=== PATIENT | female | born 1940 | race Caucasian/White ===

== ENCOUNTER 2017-04-02 17:29 | Inpatient (IN) | payer MEDICARE ==
[~2017-04-02] VITALS: Ht 170.2 cm; Wt 77.0 kg
[~2017-04-02 17:29] MED LIST: ADVA250A INH; ALPR-138 PO; AMLO10 PO; ATOR10TA PO; BYST10TA2 PO; CALC-179 PO; CARB200 PO; DOXA1 PO; FERR324T4 PO; LEVO50TA4 PO; OMEP20TA PO; PARO1TAB72 PO; VITA100018 OR
[2017-04-02 17:37] VITALS: BP 159/76; PULSE 76; RESP 17; TEMP 97.4; O2SAT 94
--- NOTE | 2017-04-02 19:24 | RADRPT ---
EXAM DATE/TIME: 04/02/2017 18:22 [facility] COMPARISON: No previous studies available for comparison. INDICATIONS : Right hip pain after fall tonight. MEDICAL HISTORY : None. SURGICAL HISTORY : None. ENCOUNTER: Initial ACUITY: 1 day PAIN SCORE: 10/10 LOCATION: Right hip. FINDINGS: There is a mildly displaced fracture through the subcapital portion of the right femoral neck. A disl ocation. Mild osteoarthritis of the hips. CONCLUSION: 1. Mildly displaced fracture right femoral neck. Hilton Villagran MD on April 02, 2017 at 19:21 Board Certified Radiologist. This report was verified electronically.
[2017-04-02] MEDS ORDERED: SODIUM CHLOR 0.9% 1000 ML INJ 1,000 ML IV ONE ×2 (20:10→20:30)
[2017-04-02 20:14] VITALS: RESP 18; O2SAT 95
[2017-04-02 20:15] VITALS: BP 180/74; PULSE 84; RESP 18; O2SAT 95
[2017-04-02] MEDS ORDERED: SODIUM CHLORIDE 0.9% FLUSH 10 ML FLUSH IVF PRN (20:15)
--- NOTE | 2017-04-02 20:19 | PD ---
HPI Chief Complaint: Fall Time Seen by Provider: 20:12 Travel History International Travel<30 days: No Contact w/Intl Traveler<30days: No Traveled to known affect area: No History of Present Illness HPI Patient 76-year-old female presenting to emergency evaluation of right hip pain. Patient states that she was attempting to use use the bathroom when she fell over, she subsequently landed on her right hip. Patient states she urinated on herself at that time. She does not remember feeling any chest pain or dizziness prior to the fall, she does not know if she lost consciousness. She reports her pain as an 8 out of 10 and describes it as sore. She denies any chest pain, headache, abdominal pain, shortness of breath, numbness in her extremities. PFSH Past Medical History Arthritis: No Asthma: No Autoimmune Disease: No Blood Disorders: No Anxiety: No Depression: No Heart Rhythm Problems: No Cancer: No High Cholesterol: Yes Chest Pain: No Congestive Heart Failure: No COPD: No Cerebrovascular Accident: Yes Diabetes: No Diminished Hearing: Yes GERD: No Genitourinary: Yes Headaches: Yes Hiatal Hernia: No Hypertension: Yes Immune Disorder: No Kidney Stones: No Musculoskeletal: No Neurologic: Yes (CVA) Psychiatric: No Reproductive: No Respiratory: No Migraines: Yes Myocardial Infarction: No Seizures: No Thyroid Disease: Yes PNEUMOCCOCAL Vaccine (Year): 2 Menopausal: Yes : 0 Para: 0 Miscarriage: 0 : 0 Past Surgical History Appendectomy: Yes Hysterectomy: Yes (complete) Tonsillectomy: Yes Social History Alcohol Use: No Tobacco Use: Yes (1 PPD) Substance Use: No Allergies-Medications (Allergen,Severity, Reaction): Coded Allergies: LAUREN Inhibitors (Verified Allergy, Severe, Edema, 04/02/17) PT GETS ANGIOEDEMA FROM LAUREN INHIBITORS Nonsteroidal Anti-Inflammatory Agts (Verified Allergy, Severe, Swelling, ) Reported Meds & Prescriptions Reported Meds & Active Scripts Active Paroxetine (Paroxetine HCl) 20 Mg Tab 1 Tab PO DAILY Ferrous Sulfate 324 Mg Tab 325 Mg PO BID Omeprazole 20 mg (Omeprazole) 20 Mg Tab 1 Tab PO DAILY Tegretol 200 Mg Tab (Carbamazepine) 200 Mg Tab 200 Mg PO Q12 Bystolic 10 Mg Tab (Nebivolol) 10 Mg Tab 10 Mg PO HS Vitamin D (Cholecalciferol) 1,000 Unit Tab 1,000 Unit OR DAILY Norvasc (Amlodipine Besylate) 10 Mg Tab 10 Mg PO DAILY Advair Diskus 250/50 (Salmeterol Xinafoate/Fluticasone) 250 Mcg/50 Mcg Inhp 1 Puff INH BID 30 Days Reported Atorvastatin 10 mg (Atorvastatin Calcium) 10 Mg Tab 1 Tab PO DAILY Levothyroxine 50 mcg (Levothyroxine Sodium) 50 Mcg Tab 0.5 Tab PO DAILY 1/2 tablet daily Doxazosin Mesylate 4 mg (Doxazosin Mesylate) 4 Mg Tab 1 Mg PO HS Calcium (Calcium & Phosphorus W/ Vitami) Tab 500 Mg PO DAILY Xanax (Alprazolam) 0.25 Mg Tab 0.25 Mg PO TID PRN Review of Systems Except as stated in HPI: all other systems reviewed are Neg Eyes: No: Visual changes HENT: No: Headaches, Lightheadedness, Neck Pain Cardiovascular: No: Chest Pain or Discomfort Respiratory: No: Shortness of Breath Gastrointestinal: No: Nausea, Vomiting, Abdominal Pain Musculoskeletal: Positive: Pain Neurologic: Positive: Syncope, No: Focal Abnormalities, Headache Physical Exam Narrative GENERAL: Well developed, well-nourished, alert elderly female. Resting comfortably in no acute distress. SKIN: Focused skin assessment warm/dry. HEAD: Atraumatic. Normocephalic. EYES: Pupils equal and round. No scleral icterus. No injection or drainage. ENT: No nasal bleeding or discharge. Mucous membranes pink and moist. NECK: Trachea midline. No JVD. CARDIOVASCULAR: Regular rate and rhythm. No murmur appreciated. RESPIRATORY: No accessory muscle use. Clear to auscultation. Breath sounds equal bilaterally. GASTROINTESTINAL: Abdomen soft, non-tender, nondistended. Hepatic and splenic margins not palpable. MUSCULOSKELETAL: No obvious deformities. No clubbing. No cyanosis. No edema. NEUROLOGICAL: Awake and alert. No obvious cranial nerve deficits. Motor grossly within normal limits. Normal speech. Positive pedal pulses. Brisk less than 3 second capillary refill. PSYCHIATRIC: Appropriate mood and affect; insight and judgment normal. Data Data Last Documented VS Vital Signs Date Time Temp Pulse Resp B/P Pulse Ox O2 Delivery O2 Flow Rate FiO2 04/02/17 20:15 84 18 180/74 95 Room Air 04/02/17 17:37 97.4 Orders Hip, Uni(Ap&Lat) W Ap Pelvis (04/02/17 ) Electrocardiogram (04/02/17 20:10) Complete Blood Count With Diff (04/02/17 20:10) Comprehensive Metabolic Panel (04/02/17 20:10) Magnesium (Mg) (04/02/17 20:10) Ckmb (Isoenzyme) Profile (04/02/17 20:10) Troponin I (04/02/17 20:10) Act Partial Throm Time (Ptt) (04/02/17 20:10) Prothrombin Time / Inr (Pt) (04/02/17 20:10) Urinalysis - C+S If Indicated (04/02/17 20:10) Chest, Single Ap (04/02/17 20:10) Ct Brain W/O Iv Contrast(Rout) (04/02/17 20:10) Blood Glucose (04/02/17 20:10) Ecg Monitoring (04/02/17 20:10) Iv Access Insert/Monitor (04/02/17 20:10) Oximetry (04/02/17 20:10) Sodium Chloride 0.9% Flush (Ns Flush) (04/02/17 20:15) Sodium Chlor 0.9% 1000 Ml Inj (Ns 1000 M (04/02/17 20:10) Morphine Inj (Morphine Inj) (04/02/17 20:30) Ondansetron Inj (Zofran Inj) (04/02/17 20:30) Sodium Chlor 0.9% 1000 Ml Inj (Ns 1000 M (04/02/17 20:30) Urinary Catheter Insert/Apply (04/02/17 20:29) Urine Culture (04/02/17 20:20) Consult Orthopedic (04/02/17 ) CKMB (04/02/17 20:20) CKMB% (04/02/17 20:20) (Hub Use Only)Inp Phy Cons/Ref (04/02/17 ) Ceftriaxone Inj (Rocephin Inj) (04/02/17 21:30) Admit Order (Ed Use Only) (04/02/17 21:47) Labs Laboratory Tests Test 04/02/17 20:20 White Blood Count 12.4 TH/MM3 Red Blood Count 4.20 MIL/MM3 Hemoglobin 13.4 GM/DL Hematocrit 40.0 % Mean Corpuscular Volume 95.4 FL Mean Corpuscular Hemoglobin 32.0 PG Mean Corpuscular Hemoglobin 33.5 % Concent Red Cell Distribution Width 14.0 % Platelet Count 243 TH/MM3 Mean Platelet Volume 9.0 FL Neutrophils (%) (Auto) 86.8 % Lymphocytes (%) (Auto) 7.1 % Monocytes (%) (Auto) 5.3 % Eosinophils (%) (Auto) 0.5 % Basophils (%) (Auto) 0.3 % Neutrophils # (Auto) 10.8 TH/MM3 Lymphocytes # (Auto) 0.9 TH/MM3 Monocytes # (Auto) 0.7 TH/MM3 Eosinophils # (Auto) 0.1 TH/MM3 Basophils # (Auto) 0.0 TH/MM3 CBC Comment DIFF FINAL Differential Comment Prothrombin Time 10.9 SEC Prothromb Time International 1.0 RATIO Ratio Activated Partial 26.4 SEC Thromboplast Time Urine Color YELLOW Urine Turbidity CLEAR Urine pH 6.5 Urine Specific [place] 1.013 Urine Protein NEG mg/dL Urine Glucose (UA) NEG mg/dL Urine Ketones NEG mg/dL Urine Occult Blood SMALL Urine Nitrite NEG Urine Bilirubin NEG Urine Urobilinogen LESS THAN 2.0 MG/DL Urine Leukocyte Esterase SMALL Urine RBC 20 /hpf Urine WBC 10 /hpf Microscopic Urinalysis Comment CULTURE INDICATED Sodium Level 143 MEQ/L Potassium Level 3.9 MEQ/L Chloride Level 109 MEQ/L Carbon Dioxide Level 27.0 MEQ/L Anion Gap 7 MEQ/L Blood Urea Nitrogen 19 MG/DL Creatinine 0.78 MG/DL Estimat Glomerular Filtration 72 ML/MIN Rate Random Glucose 110 MG/DL Calcium Level 8.9 MG/DL Magnesium Level 1.9 MG/DL Total Bilirubin 0.2 MG/DL Aspartate Amino Transf 22 U/L (AST/SGOT) Alanine Aminotransferase 34 U/L (ALT/SGPT) Alkaline Phosphatase 105 U/L Total Creatine Kinase 133 U/L Creatine Kinase MB 3.0 NG/ML Troponin I LESS THAN 0.02 NG/ML Total Protein 6.7 GM/DL Albumin 3.1 GM/DL MDM Medical Decision Making Medical Screen Exam Complete: Yes Emergency Medical Condition: Yes Interpretation(s) Laboratory Tests Test 04/02/17 20:20 White Blood Count 12.4 TH/MM3 Red Blood Count 4.20 MIL/MM3 Hemoglobin 13.4 GM/DL Hematocrit 40.0 % Mean Corpuscular Volume 95.4 FL Mean Corpuscular Hemoglobin 32.0 PG Mean Corpuscular Hemoglobin 33.5 % Concent Red Cell Distribution Width 14.0 % Platelet Count 243 TH/MM3 Mean Platelet Volume 9.0 FL Neutrophils (%) (Auto) 86.8 % Lymphocytes (%) (Auto) 7.1 % Monocytes (%) (Auto) 5.3 % Eosinophils (%) (Auto) 0.5 % Basophils (%) (Auto) 0.3 % Neutrophils # (Auto) 10.8 TH/MM3 Lymphocytes # (Auto) 0.9 TH/MM3 Monocytes # (Auto) 0.7 TH/MM3 Eosinophils # (Auto) 0.1 TH/MM3 Basophils # (Auto) 0.0 TH/MM3 CBC Comment DIFF FINAL Differential Comment Prothrombin Time 10.9 SEC Prothromb Time International 1.0 RATIO Ratio Activated Partial 26.4 SEC Thromboplast Time Urine Color YELLOW Urine Turbidity CLEAR Urine pH 6.5 Urine Specific [place] 1.013 Urine Protein NEG mg/dL Urine Glucose (UA) NEG mg/dL Urine Ketones NEG mg/dL Urine Occult Blood SMALL Urine Nitrite NEG Urine Bilirubin NEG Urine Urobilinogen LESS THAN 2.0 MG/DL Urine Leukocyte Esterase SMALL Urine RBC 20 /hpf Urine WBC 10 /hpf Microscopic Urinalysis Comment CULTURE INDICATED Sodium Level 143 MEQ/L Potassium Level 3.9 MEQ/L Chloride Level 109 MEQ/L Carbon Dioxide Level 27.0 MEQ/L Anion Gap 7 MEQ/L Blood Urea Nitrogen 19 MG/DL Creatinine 0.78 MG/DL Estimat Glomerular Filtration 72 ML/MIN Rate Random Glucose 110 MG/DL Calcium Level 8.9 MG/DL Magnesium Level 1.9 MG/DL Total Bilirubin 0.2 MG/DL Aspartate Amino Transf 22 U/L (AST/SGOT) Alanine Aminotransferase 34 U/L (ALT/SGPT) Alkaline Phosphatase 105 U/L Total Creatine Kinase 133 U/L Creatine Kinase MB 3.0 NG/ML Troponin I LESS THAN 0.02 NG/ML Total Protein 6.7 GM/DL Albumin 3.1 GM/DL Vital Signs Date Time Temp Pulse Resp B/P Pulse Ox O2 Delivery O2 Flow Rate FiO2 04/02/17 17:37 97.4 76 17 159/76 94 Differential Diagnosis Fracture versus CVA versus cardiac arrhythmia versus UTI versus loculated abnormality versus other Narrative Course Patient is a 76-year-old female presenting to emergency for evaluation of right hip pain after she sustained a mechanical fall at home. Patient doesn't remember the events clearly around the fall but states she was going to use the bathroom and missed the toilet bowl and on the floor. CT scan of the brain is negative for acute abnormality, x-ray of the right hip shows a right femur fracture. Dr. Grewal was notified and will see patient in the morning. Patient's vital signs are stable, she is afebrile. Urinalysis is indicative of urinary tract infection, Rocephin 1 g IV 1 dose ordered. CBC with a mildly elevated white count with left shift. Chemistry is unremarkable. Dr. Hugo was notified of the results of labs and imaging, he accepted admission. Orders placed. Diagnosis Primary Impression: UTI (urinary tract infection) Qualified Code: N39.0 - Urinary tract infection with hematuria, site unspecified Additional Impressions: Fall Qualified Code: W19.XXXA - Fall, initial encounter Femur fracture, right Qualified Code: S72.91XA - Closed fracture of right femur, unspecified fracture morphology, unspecified portion of femur, initial encounter Admitting Information Admitting Physician Requests: Admit Condition: Stable Delia Celis April 02, 2017 20:19
--- NOTE | 2017-04-02 20:26 | PD ---
Data Data Last Documented VS Vital Signs Date Time Temp Pulse Resp B/P Pulse Ox O2 Delivery O2 Flow Rate FiO2 04/02/17 20:15 84 18 180/74 95 Room Air 04/02/17 17:37 97.4 Orders Hip, Uni(Ap&Lat) W Ap Pelvis (04/02/17 ) Electrocardiogram (04/02/17 20:10) Complete Blood Count With Diff (04/02/17 20:10) Comprehensive Metabolic Panel (04/02/17 20:10) Magnesium (Mg) (04/02/17 20:10) Ckmb (Isoenzyme) Profile (04/02/17 20:10) Troponin I (04/02/17 20:10) Act Partial Throm Time (Ptt) (04/02/17 20:10) Prothrombin Time / Inr (Pt) (04/02/17 20:10) Urinalysis - C+S If Indicated (04/02/17 20:10) Chest, Single Ap (04/02/17 20:10) Ct Brain W/O Iv Contrast(Rout) (04/02/17 20:10) Blood Glucose (04/02/17 20:10) Ecg Monitoring (04/02/17 20:10) Iv Access Insert/Monitor (04/02/17 20:10) Oximetry (04/02/17 20:10) Sodium Chloride 0.9% Flush (Ns Flush) (04/02/17 20:15) Sodium Chlor 0.9% 1000 Ml Inj (Ns 1000 M (04/02/17 20:10) Morphine Inj (Morphine Inj) (04/02/17 20:30) Ondansetron Inj (Zofran Inj) (04/02/17 20:30) Sodium Chlor 0.9% 1000 Ml Inj (Ns 1000 M (04/02/17 20:30) Urinary Catheter Insert/Apply (04/02/17 20:29) Urine Culture (04/02/17 20:20) Consult Orthopedic (04/02/17 ) CKMB (04/02/17 20:20) CKMB% (04/02/17 20:20) (Hub Use Only)Inp Phy Cons/Ref (04/02/17 ) Ceftriaxone Inj (Rocephin Inj) (04/02/17 21:30) Admit Order (Ed Use Only) (04/02/17 21:47) Labs Laboratory Tests Test 04/02/17 20:20 White Blood Count 12.4 TH/MM3 Red Blood Count 4.20 MIL/MM3 Hemoglobin 13.4 GM/DL Hematocrit 40.0 % Mean Corpuscular Volume 95.4 FL Mean Corpuscular Hemoglobin 32.0 PG Mean Corpuscular Hemoglobin 33.5 % Concent Red Cell Distribution Width 14.0 % Platelet Count 243 TH/MM3 Mean Platelet Volume 9.0 FL Neutrophils (%) (Auto) 86.8 % Lymphocytes (%) (Auto) 7.1 % Monocytes (%) (Auto) 5.3 % Eosinophils (%) (Auto) 0.5 % Basophils (%) (Auto) 0.3 % Neutrophils # (Auto) 10.8 TH/MM3 Lymphocytes # (Auto) 0.9 TH/MM3 Monocytes # (Auto) 0.7 TH/MM3 Eosinophils # (Auto) 0.1 TH/MM3 Basophils # (Auto) 0.0 TH/MM3 CBC Comment DIFF FINAL Differential Comment Prothrombin Time 10.9 SEC Prothromb Time International 1.0 RATIO Ratio Activated Partial 26.4 SEC Thromboplast Time Urine Color YELLOW Urine Turbidity CLEAR Urine pH 6.5 Urine Specific [place] 1.013 Urine Protein NEG mg/dL Urine Glucose (UA) NEG mg/dL Urine Ketones NEG mg/dL Urine Occult Blood SMALL Urine Nitrite NEG Urine Bilirubin NEG Urine Urobilinogen LESS THAN 2.0 MG/DL Urine Leukocyte Esterase SMALL Urine RBC 20 /hpf Urine WBC 10 /hpf Microscopic Urinalysis Comment CULTURE INDICATED Sodium Level 143 MEQ/L Potassium Level 3.9 MEQ/L Chloride Level 109 MEQ/L Carbon Dioxide Level 27.0 MEQ/L Anion Gap 7 MEQ/L Blood Urea Nitrogen 19 MG/DL Creatinine 0.78 MG/DL Estimat Glomerular Filtration 72 ML/MIN Rate Random Glucose 110 MG/DL Calcium Level 8.9 MG/DL Magnesium Level 1.9 MG/DL Total Bilirubin 0.2 MG/DL Aspartate Amino Transf 22 U/L (AST/SGOT) Alanine Aminotransferase 34 U/L (ALT/SGPT) Alkaline Phosphatase 105 U/L Total Creatine Kinase 133 U/L Creatine Kinase MB 3.0 NG/ML Troponin I LESS THAN 0.02 NG/ML Total Protein 6.7 GM/DL Albumin 3.1 GM/DL MDM Supervised Visit with ISAEL: Yes Narrative Course I, Dr. Doss, have reviewed the advance practice practitioner's documentation and am in agreement, met with the patient face to face, made the diagnosis, and the medical decision making was done by me. *My assessment and Findings: Patient has femur fracture of the femoral neck on the right side. Minimal shortening and angulation. Pain medicine ordered and pain is well controlled. She does appear somewhat dehydrated and has dry mucous membranes. She was given some fluids. CT head was ordered. Agree with ISAEL documentation as above. Ultimately will be admitted. Diagnosis Primary Impression: Femur fracture, right Qualified Code: S72.91XA - Closed fracture of right femur, unspecified fracture morphology, unspecified portion of femur, initial encounter Hitesh Doss MD April 02, 2017 20:26
[2017-04-02] MEDS ORDERED: ONDANSETRON HCL 4 MG/2 ML VIAL IV PUSH ONE (20:30)
[2017-04-02] MEDS ORDERED: MORPHINE SULFATE 4 MG/ML INJ IV PUSH ONE (20:30)
[2017-04-02 20:36] LABS: BLOOD, URINE SMALL (NEG); COMMENT (UR) CULTURE INDICATED; CULTURE IF INDICATED CULTURE INDICATED; GLUCOSE,URINE NEG (NEG); KETONE, URINE NEG (NEG); NITRITE,URINE NEG (NEG); PH, URINE 6.5 (5.0-8.5); URINE COLOR YELLOW (YELLW/STRAW)
[2017-04-02 20:37] LABS: AUTOMATED NEUTROPHIL # 10.8 TH/MM3 (1.8-7.7); BASOPHIL % 0.3 % (0.0-2.0); EOSINOPHIL # 0.1 TH/MM3 (0-0.4); EOSINOPHIL % 0.5 % (0.0-4.0); HEMO FLAGS DIFF FINAL; LYMPH % 7.1 % (9.0-44.0); LYMPHOCYTE # 0.9 TH/MM3 (1.0-4.8); MEAN CELL VOLUME 95.4 FL (80.0-100.0); MEAN CORPUSCULAR HGB CONC 33.5 % (32.0-36.0); MONO % 5.3 % (0.0-8.0); NEUT % 86.8 % (16.0-70.0); PLATELET COUNT 243 TH/MM3 (150-450); WHITE BLOOD COUNT 12.4 TH/MM3 (4.0-11.0)
--- NOTE | 2017-04-02 20:41 | RADRPT ---
EXAM DATE/TIME: 04/02/2017 20:35 [facility] COMPARISON: CT BRAIN W/O CONTRAST, October 30, 2013, 23:14. INDICATIONS : Trauma. Fall. RADIATION DOSE: 42.76 CTDIvol (mGy) MEDICAL HISTORY : Cardiovascular disease. Cerebrovascular disease. Hypertension. SURGICAL HISTORY : Appendectomy. Hysterectomy. ENCOUNTER: Initial ACUITY: 1 day PAIN SCALE: 0/10 LOCATION: cranial TECHNIQUE: Multiple contiguous axial images were obtained of the head. Using automated exposure control and adj ustment of the mA and/or kV according to patient size, radiation dose was kept as low as reasonably a chievable to obtain optimal diagnostic quality images. FINDINGS: Compared to 2012. Stable lacunar infarct right thalamus. Chronic white matter ischemic changes. Corti spencer volume loss. No acute bony abnormalities. CONCLUSION: 1. No acute findings. Small lacunar infarct right thalamus. Chronic white matter ischemic changes are stable. Hilton Villagran MD on April 02, 2017 at 20:37 Board Certified Radiologist. This report was verified electronically.
[2017-04-02 20:48] LABS: APTT (PATIENT) 26.4 SEC (24.3-30.1); PROTHROMBIN TIME - PATIENT 10.9 SEC (9.8-11.6)
[2017-04-02 21:03] LABS: ALT (GPT) 34 U/L (10-53); ANION GAP 7 MEQ/L (5-15); AST (GOT) 22 U/L (15-37); BLOOD UREA NITROGEN 19 MG/DL (7-18); CHLORIDE 109 MEQ/L (98-107); GLOMERULAR FILTRATION RATE 72 ML/MIN (>89); MAGNESIUM 1.9 MG/DL (1.5-2.5); POTASSIUM 3.9 MEQ/L (3.5-5.1); SODIUM (NA) 143 MEQ/L (136-145)
[2017-04-02 21:07] LABS: ALKALINE PHOSPHATASE 105 U/L (45-117); CREATINE KINASE 133 U/L (26-192); TOTAL BILIRUBIN ADULT 0.2 MG/DL (0.2-1.0)
[2017-04-02] MEDS ORDERED: cefTRIAXone INJ 1,000 MG in SODIUM CHLORIDE 0.9% INJ 100 ML IV ONE (21:30)
--- NOTE | 2017-04-02 21:38 | RADRPT ---
EXAM DATE/TIME: 04/02/2017 20:28 [facility] COMPARISON: No previous studies available for comparison. INDICATIONS : Palpitations, fall. MEDICAL HISTORY : None. SURGICAL HISTORY : None. ENCOUNTER: Initial ACUITY: 1 day PAIN SCORE: 0/10 LOCATION: Bilateral chest FINDINGS: A single view of the chest demonstrates the lungs to be symmetrically aerated without evidence of mas s, infiltrate or effusion. Minimal basilar atelectasis. The cardiomediastinal contours are unremarkab le. Osseous structures are intact. CONCLUSION: 1. Minimal basilar atelectasis. No acute findings. Hilton Villagran MD on April 02, 2017 at 21:09 Board Certified Radiologist. This report was verified electronically.
[2017-04-02] MEDS ORDERED: NALOXONE HCL 0.4 MG/ML AMP IV PRN (22:00)
[2017-04-02] MEDS ORDERED: SODIUM CHLORIDE 0.9% FLUSH 10 ML FLUSH IV FLUSH PRN (22:00)
[2017-04-02] MEDS ORDERED: ONDANSETRON HCL 4 MG/2 ML VIAL IVP PRN (22:00)
[2017-04-02] MEDS ORDERED: MORPHINE SULFATE 4 MG/ML INJ IV PUSH PRN (22:15)
[2017-04-02] MEDS: RESP: ALBUTEROL 2.5 MG/IPRATROPIUM 0.5 MG NEB (SCH) NEB (22:34)
[2017-04-02 22:37] VITALS: O2SAT 93
[2017-04-02] MEDS: SODIUM CHLOR 0.9% 1000 ML INJ 1,000 ML IV SCH (22:50)
[2017-04-02] MEDS ORDERED: AMLO10TA2 PO (22:59)
[2017-04-02] MEDS ORDERED: ALPR.25 PO (22:59)
[2017-04-02] MEDS ORDERED: ATOR10TA15 PO (23:00)
[2017-04-02] MEDS ORDERED: CALCTAB54 PO (23:01)
[2017-04-02] MEDS ORDERED: CALCCHW9 CHEW (23:01)
[2017-04-02] MEDS ORDERED: TEGR200T PO (23:02)
[2017-04-02] MEDS ORDERED: VITA100064 PO (23:03)
[2017-04-02] MEDS ORDERED: FERR325T PO (23:04)
[2017-04-02] MEDS ORDERED: DOXA1TAB34 PO (23:04)
[2017-04-02] MEDS ORDERED: LEVO50TA4 PO (23:05)
[2017-04-02] MEDS ORDERED: PARO20TA2 PO (23:07)
[2017-04-02] MEDS ORDERED: ASPI81TA81 (23:07)
[2017-04-02] MEDS ORDERED: ADVA250A INH (23:08)
[2017-04-02 23:32] VITALS: BP 171/74; PULSE 82; RESP 22; TEMP 98.2; O2SAT 93
[2017-04-02] MEDS: cloNIDine HCL 0.1 MG TAB PO PRN (23:45)
[2017-04-03] VITALS (8 sets, daily range): BP systolic 135–172; BP diastolic 65–74; PULSE 78–88; RESP 17–22; TEMP 98.1–99.5; O2SAT 90–94
[2017-04-03] MEDS: MORPHINE SULFATE 4 MG/ML INJ IV PUSH PRN ×2 (03:24→09:02)
[2017-04-03] MEDS: RESP: ALBUTEROL 2.5 MG/IPRATROPIUM 0.5 MG NEB (SCH) NEB ×4 (05:02→21:16)
[2017-04-03] MEDS ORDERED: LEVOTHYROXINE SODIUM 25 MCG TAB PO SCH (06:00)
[2017-04-03] MEDS ORDERED: ALPRAZolam 0.25 MG TAB PO PRN (07:15)
[2017-04-03] MEDS ORDERED: ceFAZolin 2 GM PREMIX 50 ML IV SCH (07:15)
--- NOTE | 2017-04-03 07:15 | PD.CONS ---
cc: Serafin Grewal MD HPI Service Orthopedic Surgeons Consult Requested By ED staff Reason for Consult right femoral neck fracture Primary Care Physician Olvin Hugo MD Admission Diagnosis FEMUR FRACTURE, UTI Diagnoses: (1) Fracture of femoral neck, right (2) Hyperlipidemia (3) Hypothyroidism (4) Osteopenia (5) Hypertension (6) Anxiety (7) Depression (8) CVA (cerebral infarction) (9) UTI (urinary tract infection) Chief Complaint: Right hip pain History of Present Illness Patient 76-year-old female presenting to emergency evaluation of right hip pain. Patient states that she was attempting to use use the bathroom when she fell over, she subsequently landed on her right hip. Patient states she urinated on herself at that time. She does not remember feeling any chest pain or dizziness prior to the fall, she does not know if she lost consciousness. She reports her pain as an 8 out of 10 and describes it as sore. She denies any chest pain, headache, abdominal pain, shortness of breath, numbness in her extremities. The patient has a history of a CVA with mild residual left-sided weakness. She uses a walker for ambulation. She denies other extremity injury at the time of her fall. X-rays revealed a minimally displaced right femoral neck fracture. She was admitted to the medical service with orthopedic consultation requested. Review of Systems Reviewed and well outlined in the chart Past Family Social History Past Medical History Past Medical History Arthritis: No Asthma: No Autoimmune Disease: No Blood Disorders: No Anxiety: No Depression: No Heart Rhythm Problems: No Cancer: No High Cholesterol: Yes Chest Pain: No Congestive Heart Failure: No COPD: No Cerebrovascular Accident: Yes Diabetes: No Diminished Hearing: Yes GERD: No Genitourinary: Yes Headaches: Yes Hiatal Hernia: No Hypertension: Yes Immune Disorder: No Kidney Stones: No Musculoskeletal: No Neurologic: Yes (CVA) Psychiatric: No Reproductive: No Respiratory: No Migraines: Yes Myocardial Infarction: No Seizures: No Thyroid Disease: Yes PNEUMOCCOCAL Vaccine (Year): 2 Menopausal: Yes : 0 Para: 0 Miscarriage: 0 : 0 Past Surgical History Past Surgical History Appendectomy: Yes Hysterectomy: Yes (complete) Tonsillectomy: Yes Social History Alcohol Use: No Tobacco Use: Yes (1 PPD) Substance Use: No Allergies-Medications (Allergen,Severity, Reaction): Coded Allergies: LAUREN Inhibitors (Verified Allergy, Severe, Edema, 04/02/17) PT GETS ANGIOEDEMA FROM LAUREN INHIBITORS Nonsteroidal Anti-Inflammatory Agts (Verified Allergy, Severe, Swelling, ) Reported Meds & Prescriptions Reported Meds & Active Scripts Active Paroxetine (Paroxetine HCl) 20 Mg Tab 1 Tab PO DAILY Ferrous Sulfate 324 Mg Tab 325 Mg PO BID Omeprazole 20 mg (Omeprazole) 20 Mg Tab 1 Tab PO DAILY Tegretol 200 Mg Tab (Carbamazepine) 200 Mg Tab 200 Mg PO Q12 Bystolic 10 Mg Tab (Nebivolol) 10 Mg Tab 10 Mg PO HS Vitamin D (Cholecalciferol) 1,000 Unit Tab 1,000 Unit OR DAILY Norvasc (Amlodipine Besylate) 10 Mg Tab 10 Mg PO DAILY Advair Diskus 250/50 (Salmeterol Xinafoate/Fluticasone) 250 Mcg/50 Mcg Inhp 1 Puff INH BID 30 Days Reported Atorvastatin 10 mg (Atorvastatin Calcium) 10 Mg Tab 1 Tab PO DAILY Levothyroxine 50 mcg (Levothyroxine Sodium) 50 Mcg Tab 0.5 Tab PO DAILY 1/2 tablet daily Doxazosin Mesylate 4 mg (Doxazosin Mesylate) 4 Mg Tab 1 Mg PO HS Calcium (Calcium & Phosphorus W/ Vitami) Tab 500 Mg PO DAILY Xanax (Alprazolam) 0.25 Mg Tab 0.25 Mg PO TID PRN Allergies: Coded Allergies: LAUREN Inhibitors (Verified Allergy, Severe, Edema, 04/02/17) PT GETS ANGIOEDEMA FROM LAUREN INHIBITORS Nonsteroidal Anti-Inflammatory Agts (Verified Allergy, Severe, Swelling, ) Active Ordered Medications Current Medications Medications (Trade) Dose Ordered Sig/Estelita Route Start Time Stop Time Status Last Admin (NS 1000 ml Inj) 1,000 ml @ 100 mls/hr Q10H IV 04/02/17 21:57 04/02/17 22:50 (NS Flush) 2 ml UNSCH PRN IV FLUSH 04/02/17 22:00 (NS Flush) 2 ml BID IV FLUSH 04/03/17 09:00 (Zofran Inj) 4 mg Q6H PRN IVP 04/02/17 22:00 (Narcan Inj) 0.4 mg UNSCH PRN IV 04/02/17 22:00 (Catapres) 0.1 mg Q6H PRN PO 04/02/17 22:15 04/02/17 23:45 (Morphine Inj) 2 mg Q3H PRN IV PUSH 04/02/17 22:15 04/03/17 03:24 (Morphine Inj) 4 mg Q3H PRN IV PUSH 04/02/17 22:15 (Norvasc) 10 mg DAILY PO 04/03/17 09:00 (TEGretol) 200 mg BID PO 04/03/17 09:00 (Cardura) 1 mg HS PO 04/03/17 21:00 (Synthroid) 25 mcg DAILY@06 PO 04/03/17 06:00 04/03/17 05:35 (Bystolic) 10 mg HS PO 04/03/17 21:00 (Lipitor) 10 mg DAILY PO 04/03/17 09:00 (Paxil) 20 mg DAILY PO 04/03/17 09:00 Reported Meds & Active Scripts Active Reported Advair Diskus Inh (Fluticasone-Salmeterol Inh) 250-50 Mcg/Blist Aer 1 Puff INH BID Rinse mouth after use. Aspir-81 (Aspirin) 81 Mg Tabdr Paroxetine (Paroxetine HCl) 20 Mg Tab 20 Mg PO DAILY Levothyroxine (Levothyroxine Sodium) 50 Mcg Tab 0.5 Mcg PO DAILY Doxazosin (Doxazosin Mesylate) 4 Mg Tab 4 Mg PO DAILY Ferrous Sulfate 325 Mg Tab 325 Mg PO DAILY Vitamin D (Cholecalciferol) 1,000 Unit Tab 1,000 Units PO DAILY Tegretol (Carbamazepine) 200 Mg Tab 200 Mg PO BID Calcium 1200 (Calcium Carbonate-Vitamin D W/Minerals) 1,200-1,000 Mg-Unit Chew 1 Tab CHEW DAILY Atorvastatin (Atorvastatin Calcium) 10 Mg Tab 10 Mg PO HS Amlodipine (Amlodipine Besylate) 10 Mg Tab 10 Mg PO DAILY Xanax (Alprazolam) 0.25 Mg Tab 0.25 Mg PO Q8H PRN Physical Exam Vital Signs Vital Signs Date Time Temp Pulse Resp B/P Pulse Ox O2 Delivery O2 Flow Rate FiO2 04/02/17 23:32 98.2 82 22 171/74 93 04/02/17 22:48 Nasal Cannula 2.00 04/02/17 22:37 93 Nasal Cannula 4.00 04/02/17 20:15 84 18 180/74 95 Room Air 04/02/17 20:14 18 95 Room Air 04/02/17 17:37 97.4 76 17 159/76 94 Physical Exam The patient is awake and alert and answers questions appropriately. Her leg lengths are equal. She has pain with any attempted range of motion of the right hip. There is no overlying skin change. She moves her toes freely and has good capillary refill and sensation. Laboratory Laboratory Tests Test 04/02/17 20:20 White Blood Count 12.4 Red Blood Count 4.20 Hemoglobin 13.4 Hematocrit 40.0 Mean Corpuscular Volume 95.4 Mean Corpuscular Hemoglobin 32.0 Mean Corpuscular Hemoglobin 33.5 Concent Red Cell Distribution Width 14.0 Platelet Count 243 Mean Platelet Volume 9.0 Neutrophils (%) (Auto) 86.8 Lymphocytes (%) (Auto) 7.1 Monocytes (%) (Auto) 5.3 Eosinophils (%) (Auto) 0.5 Basophils (%) (Auto) 0.3 Neutrophils # (Auto) 10.8 Lymphocytes # (Auto) 0.9 Monocytes # (Auto) 0.7 Eosinophils # (Auto) 0.1 Basophils # (Auto) 0.0 CBC Comment DIFF FINAL Differential Comment Prothrombin Time 10.9 Prothromb Time International 1.0 Ratio Activated Partial 26.4 Thromboplast Time Urine Color YELLOW Urine Turbidity CLEAR Urine pH 6.5 Urine Specific [place] 1.013 Urine Protein NEG Urine Glucose (UA) NEG Urine Ketones NEG Urine Occult Blood SMALL Urine Nitrite NEG Urine Bilirubin NEG Urine Urobilinogen LESS THAN 2.0 Urine Leukocyte Esterase SMALL Urine RBC 20 Urine WBC 10 Microscopic Urinalysis Comment CULTURE INDICATED Sodium Level 143 Potassium Level 3.9 Chloride Level 109 Carbon Dioxide Level 27.0 Anion Gap 7 Blood Urea Nitrogen 19 Creatinine 0.78 Estimat Glomerular Filtration 72 Rate Random Glucose 110 Calcium Level 8.9 Magnesium Level 1.9 Total Bilirubin 0.2 Aspartate Amino Transf 22 (AST/SGOT) Alanine Aminotransferase 34 (ALT/SGPT) Alkaline Phosphatase 105 Total Creatine Kinase 133 Creatine Kinase MB 3.0 Troponin I LESS THAN 0.02 Total Protein 6.7 Albumin 3.1 Date/Time Procedure Status Source Growth 04/02/17 20:20 Urine Culture Received Urine Clean Catch Pending Result Diagram: 04/02/17201904/02/172019 Imaging Last [address] 04/02/172009 Signed Impressions: Service Date/Time: Sunday, April 02, 2017 20:35 - CONCLUSION: 1. No acute findings. Small lacunar infarct right thalamus. Chronic white matter ischemic changes are stable. Hliton Villagran MD Chest X-Ray 04/02/172009 Signed Impressions: Service Date/Time: Sunday, April 02, 2017 20:28 - CONCLUSION: 1. Minimal basilar atelectasis. No acute findings. Hilton Villagran MD Hip and Pelvis X-Ray 04/02/17 Signed Impressions: Service Date/Time: Sunday, April 02, 2017 18:22 - CONCLUSION: 1. Mildly displaced fracture right femoral neck. Hilton Villagran MD Assessment & Plan Problem List: (1) Fracture of femoral neck, right (2) COPD (chronic obstructive pulmonary disease) (3) Hyperlipidemia (4) Hypothyroidism (5) Osteopenia (6) Anxiety (7) Hypertension (8) Depression (9) UTI (urinary tract infection) (10) CVA (cerebral infarction) Assessment and Plan The findings were discussed. X-ray findings were reviewed. The options for treatment both operative and nonoperative were discussed. Recommendation given for internal fixation to allow mobilization and pain control. This included percutaneous pinning versus bipolar hip arthroplasty as well as the risks and benefits of each. I do feel the patient is a candidate for percutaneous pinning of the need for restricted weightbearing following this was discussed. The nature of the procedure, the risks, expected benefits, as well as the postoperative expectations were discussed with her in detail. In addition, the alternatives to treatment and risks of same were discussed. She acknowledges full understanding and consents to it. Serafin Grewal MD April 03, 2017 07:15
--- NOTE | 2017-04-03 08:13 | MH ---
cc: FREDY LY M.D. DATE OF ADMISSION 04/02/2017 ADMITTING DIAGNOSIS Right femoral neck fracture. HISTORY OF PRESENT ILLNESS This 76 year-old white female well-known to the undersigned physician has a fairly complex history of hypertension, previous CVA, hyperlipidemia, anxiety, trigeminal neuralgia and hypothyroidism. She was at home in her usual state of health and was attempting to sit down on the commode when she lost her balance and fell to the floor. She had sudden onset of right proximal femur pain. The patient was unable to rise from the floor. She activated her emergency alert system and the fire department came to her home. The patient was transported to this facility further evaluation and treatment. She denies any loss of consciousness, any chest pain, shortness of breath, palpitations, vertigo, nausea, vomiting, lateralizing deficits, headaches, visual changes. She has had no fever, chills, night sweats. The patient denies any dysuria. She has chronic urinary urgency and some incontinence. The patient has been taking her medications as usual. PAST MEDICAL HISTORY Significant for: 1. Kidney stones 2. Hypothyroidism 3. COPD 4. Osteopenia 5. She has lumbar disk disease with intermittent radiculitis. 6. She underwent epidural steroid injections in 2006. 7. She had a retinal artery branch occlusion bilaterally with residual chronic left visual field deficit. 8. She has anxiety. 9. Irritable bowel syndrome which diarrhea dominant. 10. She has allergic rhinitis. 11. Osteoarthritis 12. Hyperlipidemia 13. Trigeminal neuralgia of the left side of her face. 14. She has had two previous lacunar CVA's of the jose one in 2010 and an extension of the previous stroke in 2012. 15. She has hypertension. MEDICATIONS Her current medications are: 1. Alprazolam 0.25 mg one-half to one tablet three times a day as needed for anxiety. 2. Advair discus 250/50 micrograms one inhalation twice a day. 3. Tegretol XR 200 mg one tablet twice daily 4. Amlodipine 10 mg daily 5. She also takes carbamazepine 50 mg once a day at bedtime. 6. Ferrous sulfate 325 mg daily 7. Plavix 75 mg daily 8. Calcium 600 mg once daily 9. Atorvastatin 10 mg daily 10. Paxil 20 mg daily 11. Doxazosin 4 mg at bedtime 12. Oxybutynin 5 mg one tablet twice daily PAST SURGICAL HISTORY 1. Positive for a face lift in 2008. 2. JEFF with BSO in 1971 3. She is status post appendectomy. 4. She had a right cataract removal with lens implant. FAMILY HISTORY Positive for father who in his 30s of reported colon cancer. Mother had hypertension, hyperlipidemia, rheumatoid arthritis, hypothyroidism, diabetes and rheumatic heart disease. SOCIAL HISTORY She is . She lives alone. She has a caregiver who comes in part-time to assist her. She is retired. She smokes a pack of cigarettes a day and has done so for over 50 years. She does not currently consume any alcohol. REVIEW OF SYSTEMS Negative except as outlined above. PHYSICAL EXAMINATION VITAL SIGNS: Upon arrival to the emergency department, the patient's blood pressure was 159/76 with a heart rate of 76, respirations are 17, temperature 97.4 degrees Fahrenheit, oxygen saturation was 94% on room air. At the current time blood pressure is 149/66 with a heart rate of 83, respirations 22, oximetry is 94% on two liters minute per nasal cannula, temperature 99.5 degrees Fahrenheit. GENERAL: This is an overweight elderly white female sitting in bed in no distress at this time. HEENT: The pupils are equal, round, and reactive to light. Extraocular movements are intact. Sclerae anicteric. Conjunctive pink. Mouth and throat reveal moist mucous membranes. No erythema or exudates. Dentition is good. NECK: Supple without lymphadenopathy, JVD, bruits or thyromegaly. CARDIOVASCULAR: Rate and rhythm without murmurs, rubs or gallops. LUNGS: Reveal mildly reduced air exchange, but otherwise clear to auscultation without wheezes, rhonchi or rales. ABDOMEN: Soft, nontender and nondistended, however, obese. Bowel sounds present. No masses palpable. No hepatosplenomegaly. AND RECTAL: Deferred. EXTREMITIES: The bilateral lower extremities reveal 1+ distal pulses. No calf tenderness. No Homans' sign. There is external rotation of the right lower extremity. Range of motion of the right lower extremity was not tested due to pain referable to the proximal femur. NEUROLOGIC EXAMINATION The patient is awake, alert, and oriented x3. Speech intact. Cranial nerves intact. No lateralizing deficits. No memory deficits. No cognitive deficits. Mood good. Affect appropriate. The skin is warm and dry. No significant rashes or lesions. LABORATORY DATA White blood count 12.4, hemoglobin 13.4, hematocrit 40, platelet count 243,000. The comprehensive metabolic profile was significant for a BUN of 19, creatinine was 0.78, estimated GFR is 72. The albumin is low at 3.1. CK and troponin were both within normal range. Urinalysis revealed a specific gravity of 1.013, pH 6.5, small occult blood, small leukocyte esterase, 20 RBCs and 10 WBCs per high-power field. Culture is pending. INR 1.0, APTT 26.4. IMAGING STUDIES The chest x-ray revealed minimal basilar atelectasis, otherwise no acute findings. The CT scan of the head without contrast reveals no acute findings, small with further infarct in the right thalamus, chronic white matter ischemic changes which are stable and x-ray of the right hip and pelvis revealed a mildly displaced fracture of the right femoral neck. EKG revealed sinus rhythm with a rate of 82 beats per minute, axis was 46 degrees, some nonspecific ST changes, but no significant change from prior tracing done April 26, 2016 IMPRESSION AND PLAN 1. This 76-year white female is status post a fall at home with a right femoral neck fracture. She would be admitted to medical-surgical bed and orthopedic surgery was consulted. Dr. Grewal has seen the patient in consultation and has recommended ORIF. The patient has agreed. Surgery will be performed later today. The patient will be allowed to have a clear liquid breakfast, then n.p.o. Her pain is currently controlled with morphine sulfate IV as needed. She will remain at bedrest at this time. 2. History of hypertension. Blood pressure was markedly elevated at time of admission. Blood pressure under better control now. Continue with the usual medications. Provide clonidine orally as needed for elevated blood pressure. 3. COPD. The patient has been smoking up until the time of admission. I have ordered nebulizer treatments to be performed every six hours in anticipation of the surgery and will perform aggressive pulmonary toilet postoperatively, monitor oxygen saturations, wean oxygen as tolerated. 4. Trigeminal neuralgia. Continue with Tegretol and adjust dosage as needed. 5. Hyperlipidemia. Continue with atorvastatin at the current dosage. 6. History of anxiety. The patient reports that she is feeling anxious at this point. Continue with the paroxetine and I have ordered alprazolam 0.25 mg every 8 hours as needed. The patient will receive a dose at this time. 7. History of IBS currently asymptomatic. We will follow. 8. Hypothyroidism. The patient has not taken her Synthroid in almost a year. Most recent TSH has been within normal range. We will follow at this time. 9. History of she lacunar CVA. Plavix is on hold at this point. We will resume postoperatively. 10. DVT prophylaxis. The patient will need to be on anticoagulation postoperatively to reduce the risk of postoperative DVT. 11. Disposition. The patient will need fci facility placement postoperatively as she lives alone at home and will be unable to care for herself. She will need to likely be non-weightbearing or partial weightbearing to the affected limb which will also limit her ability to care for herself. I have explained the patient's condition to the patient and the need for postoperative fci facility placement. She expressed understanding and agreement. MD VALERIA Barrios/ALAN /7:20 AM /7:56 AM
[2017-04-03] MEDS: NICOTINE 14 MG/24 HR PATCH T-DERMAL SCH (09:00)
[2017-04-03] MEDS ORDERED: SODIUM CHLORIDE 0.9% FLUSH 10 ML FLUSH IV FLUSH SCH (09:00)
[2017-04-03] MEDS ORDERED: ATORVASTATIN 10 MG PO SCH (09:00)
[2017-04-03] MEDS ORDERED: PAROXETINE HCL PO SCH (09:00)
[2017-04-03] MEDS: ATORVASTATIN 10 MG TAB PO SCH (09:01)
[2017-04-03] MEDS: PARoxetine HCL 20 MG TAB PO SCH (09:01)
[2017-04-03] MEDS: carBAMazepine 200 MG TAB PO SCH ×2 (09:01→21:30)
[2017-04-03] MEDS: SODIUM CHLOR 0.9% 1000 ML INJ 1,000 ML IV SCH (09:03)
--- NOTE | 2017-04-03 10:45 | EKG ---
Date Performed: 04/02/2017 Time Performed: 20:16:20 PTAGE: 76 years EKG: Sinus rhythm NONSPECIFIC T-WAVE ABNORMALITY BORDERLINE ECG PREVIOUS TRACING : 04/26/2016 20.24 DOCTOR: Rowdy Felix Interpretating Date/Time 04/03/2017 10:43:10
[2017-04-03] MEDS ORDERED: LACTATED RINGER'S 1000 ML INJ 1,000 ML IV ONE (12:00)
[2017-04-03] MEDS ORDERED: PROPOFOL 200 MG/20 ML AMP IV ONE (12:00)
[2017-04-03] MEDS ORDERED: PHENYLEPH/NS 1000 MCG/10 ML SYR IV ONE (12:00)
[2017-04-03] MEDS ORDERED: ONDANSETRON HCL 4 MG/2 ML VIAL IV PUSH ONE (12:00)
[2017-04-03] MEDS: cloNIDine HCL 0.1 MG TAB PO PRN (17:26)
[2017-04-03] MEDS ORDERED: GENTAMICIN SULFATE 80 MG/2 ML VIAL ONE (17:55)
[2017-04-03] MEDS ORDERED: ACETAMINOPHEN 1000 MG/100 ML VIAL IV ONE (18:45)
[2017-04-03] MEDS ORDERED: SUGAMMADEX SODIUM 200 MG/2 ML VIAL IV PUSH ONE ×2 (19:27)
[2017-04-03] MEDS ORDERED: LACTATED RINGER'S 1000 ML INJ 1,000 ML IV SCH (19:31)
--- NOTE | 2017-04-03 19:41 | PD.OP ---
cc: Serafin Grewal MD Operative Report Date of Surgery: April 03, 2017 Preoperative Diagnosis: (1) Fracture of femoral neck, right Postoperative Diagnosis: (1) Fracture of femoral neck, right Procedure: Closed reduction, percutaneous screw fixation right femoral neck fracture Implants used: Synthes 7.3 cannulated screws Anesthesia: Gen. Surgeon: Serafin Grewal Straightening Roll Operator(s): Candice Villaseñor PA-C ([place]) The surgical procedure was assisted by my physician's field technical assistant. Her presence was necessary throughout the case for manipulation and positioning of the surgical extremity. My PA was assisting me throughout the duration of this procedure. The skill set of the physician field technical assistant was medically necessary to complete this procedure. During the surgical case the surgical manager was working at the back table and the physician field technical assistant was directly assisting me. Operation and Findings: Indications: This 76-year-old female fell at home injuring her right hip. The patient had pain and difficulty ambulating. She presented to [facility]. X -rays revealed a nondisplaced fracture of the femoral neck. Given the alternatives of the treatment both operative and nonoperative as well as the operative alternatives she presents for cannulated screw fixation. Procedure and findings: The patient was taken to the operative suite and after undergoing an adequate level of general anesthesia was placed supine on the fracture table. Preoperative antibiotics consisted of Ancef 2 g IV. The right lower extremity was positioned in skin traction and preoperative reduction checked in both the AP and lateral planes with the C-arm. The right thigh was then prepped and draped in the usual sterile fashion with alcohol and Hibiclens. A 3 cm incision was made over the lateral aspect of the thigh. This was carried down through skin and subcutaneous tense tissue with a knife. Hemostasis was obtained electrocautery. The iliotibial band was identified and split longitudinally. Blunt dissection was carried out to the lateral cortex of the proximal femur. A threaded guide pins were placed through the lateral cortex into the femoral neck and seated in the subchondral bone of the femoral head. Measurements were made and the appropriate length 7.3 cannulated screws seated. An attempt was made to use 3 screws however the neck would not accommodate 3 of the 7.3 screws and therefore only 2 were utilized. The patient had very good fixation and good bone quality despite her age and activity level. The position was checked in both the AP and lateral planes with the C-arm. The wound was thoroughly irrigated. It was subsequently closed in layers utilizing 0 Vicryl suture on the iliotibial band and deep tissue, 2-0 Vicryl suture and the subcutaneous tense tissue and giana on the skin. Sterile dressings were applied, the patient was awakened, transferred to the hospital bed and taken to the recovery room in stable condition. Estimated blood loss: 50 cc Complications: None Serafin Grewal MD April 03, 2017 19:41
[2017-04-03] MEDS ORDERED: ACETAMINOPHEN 325 MG TAB PO PRN (19:45)
[2017-04-03] MEDS ORDERED: SODIUM CHLORIDE 0.9% FLUSH 10 ML FLUSH IV FLUSH PRN (19:45)
[2017-04-03] MEDS ORDERED: Post-op Orders (for Pharmacy) MISC XX ONE (19:45)
[2017-04-03] MEDS ORDERED: TEMAZEPAM 15 MG CAP PO PRN (19:45)
[2017-04-03] MEDS ORDERED: ONDANSETRON HCL 4 MG/2 ML VIAL IVP PRN (19:45)
[2017-04-03] MEDS ORDERED: MORPHINE SULFATE 8 MG/ML INJ IV PUSH PRN (19:45)
[2017-04-03] MEDS ORDERED: ACETAMINOPHEN/HYDROcodone 325 MG/5 MG TAB PO PRN (19:45)
[2017-04-03] MEDS ORDERED: BISACODYL 10 MG SUPP RECTAL PRN (19:45)
[2017-04-03] MEDS ORDERED: ALUMINUM/MAGNESIUM/SIMETH 30 ML CUP PO PRN (19:45)
[2017-04-03] MEDS ORDERED: POVIDONE IODINE 10% SOLN 118 ML BOTTLE TOPICAL PRN (19:45)
[2017-04-03] MEDS ORDERED: RESP: ALBUTEROL 2.5 MG/IPRATROPIUM 0.5 MG NEB (PRN) ONE (20:18)
[2017-04-03] MEDS ORDERED: METOPROLOL TARTRATE 5 MG/5 ML VIAL ONE (20:29)
[2017-04-03] MEDS ORDERED: FUROSEMIDE 20 MG/2 ML VIAL ONE (20:37)
[2017-04-03] MEDS ORDERED: fentaNYL CITRATE 250 MCG/5 ML AMP ONE (20:42)
--- NOTE | 2017-04-03 20:49 | RADRPT ---
EXAM DATE/TIME: 04/03/2017 19:20 [facility] COMPARISON: HIP RIGHT (AP&LAT 2/3VWS) W AP PELVIS, April 02, 2017, 18:22. INDICATIONS : ORIF rt hip pinning. MEDICAL HISTORY : None. SURGICAL HISTORY : None. ENCOUNTER: Subsequent ACUITY: 1 day PAIN SCORE: Non-responsive. LOCATION: Right Hip FINDINGS: There are postsurgical changes with operative reduction and internal fixation of the previously seen fracture. The alignment is anatomic. CONCLUSION: Postsurgical changes as above. Darek Burns MD on April 03, 2017 at 20:48 Board Certified Radiologist. This report was verified electronically.
--- NOTE | 2017-04-03 20:58 | RADRPT ---
EXAM DATE/TIME: 04/03/2017 20:32 [facility] COMPARISON: CHEST SINGLE AP, April 02, 2017, 20:28. INDICATIONS : Short of breath after surgery. MEDICAL HISTORY : None. SURGICAL HISTORY : None. ENCOUNTER: Initial ACUITY: 1 day PAIN SCORE: Non-responsive. LOCATION: Bilateral chest FINDINGS: The cardiac silhouette is enlarged in transverse diameter. There is prominence of the central pulmona ry vasculature with indistinct vascular margins compatible with vascular congestion but no evidence o f overt failure. This is new when compared with the prior exam. No pleural effusions are identified. CONCLUSION: 1. Cardiomegaly and findings of vascular congestion without overt failure. This is new when compared with the prior exam. Darek Burns MD on April 03, 2017 at 20:56 Board Certified Radiologist. This report was verified electronically.
[2017-04-03] MEDS: SODIUM CHLORIDE 0.9% FLUSH 10 ML FLUSH IV FLUSH SCH (21:00)
[2017-04-03] MEDS: REMOVE OLD PATCH T-DERMAL SCH (21:00)
[2017-04-03] MEDS: DOXAZOSIN MESYLATE 1 MG TAB PO SCH (21:30)
[2017-04-03] MEDS: NEBIVOLOL 10 MG TAB PO SCH (21:30)
--- NOTE | 2017-04-03 23:17 | PD.CONS ---
[facility] Service Critical Care Medicine Consult Requested By Primary Care Physician Olvin Hugo MD History of Present Illness 76 year-old white female with history of hypertension, previous CVA, hyperlipidemia, anxiety, trigeminal neuralgia and hypothyroidism. She was at home in her usual state of health and was attempting to sit down on the commode when she lost her balance and fell to the floor. She had sudden onset of right proximal femur pain. She was diagnosed with a hip fracture and was taken to operating room for ORIF. In the PACU she was found to be in respiratory distress with tachycardia and SCDs. Critical care was consulted for COPD exacerbation. Review of Systems Constitutional: DENIES: Diaphoretic episodes, Fatigue, Fever, Weight gain, Weight loss, Chills, Dizziness, Change in appetite, Night Sweats Endocrine: DENIES: Abnorml menstrual pattern, Heat/cold intolerance, Polydipsia , Polyuria, Polyphagia Eyes: DENIES: Blurred vision, Diplopia, Eye inflammation, Eye pain, Vision loss , Photosensitivity, Double Vision Ears, nose, mouth, throat: DENIES: Tinnitus, Hearing loss, Vertigo, Nasal discharge, Oral lesions, Throat pain, Hoarseness, Ear Pain, Running Nose, Epistaxis, Sinus Pain, Toothache, Odynophagia Respiratory: DENIES: Apneas, Cough, Snoring, Wheezing, Hemoptysis, Sputum production, Shortness of breath Cardiovascular: DENIES: Chest pain, Palpitations, Syncope, Dyspnea on Exertion , PND, Lower Extremity Edema, Orthopnea, Claudication Gastrointestinal: DENIES: Abdominal pain, Black stools, Bloody stools, Constipation, Diarrhea, Nausea, Vomiting, Difficulty Swallowing, Anorexia Genitourinary: DENIES: Abnormal vaginal bleeding, Dysmenorrhea, Dyspareunia, Sexual dysfunction, Urinary frequency, Urinary incontinence, Urgency, Hematuria , Dysuria, Nocturia, Vaginal discharge Integumentary: DENIES: Abnormal pigmentation, Pruritus, Rash, Nail changes, Breast masses, Breast skin changes, Nipple discharge Hematologic/lymphatic: DENIES: Bruising, Lymphadenopathy Immunologic/allergic: DENIES: Eczema, Urticaria Neurologic: DENIES: Abnormal gait, Headache, Localized weakness, Paresthesias, Seizures, Speech Problems, Tremor, Poor Balance Past Family Social History Allergies: Coded Allergies: LAUREN Inhibitors (Verified Allergy, Severe, Edema, 04/02/17) PT GETS ANGIOEDEMA FROM LAUREN INHIBITORS Nonsteroidal Anti-Inflammatory Agts (Verified Allergy, Severe, Swelling, ) Past Medical History Kidney stones Hypothyroidism COPD Osteopenia Lumbar disk disease with intermittent radiculitis. 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 Anxiety. Irritable bowel syndrome which diarrhea dominant. Allergic rhinitis. Osteoarthritis Hyperlipidemia Trigeminal neuralgia of the left side of her face. She has had two previous lacunar CVA's of the jose Hypertension Reported Medications Reported Meds & Active Scripts Active Reported Advair Diskus Inh (Fluticasone-Salmeterol Inh) 250-50 Mcg/Blist Aer 1 Puff INH BID Rinse mouth after use. Aspir-81 (Aspirin) 81 Mg Tabdr Paroxetine (Paroxetine HCl) 20 Mg Tab 20 Mg PO DAILY Levothyroxine (Levothyroxine Sodium) 50 Mcg Tab 0.5 Mcg PO DAILY Doxazosin (Doxazosin Mesylate) 4 Mg Tab 4 Mg PO DAILY Ferrous Sulfate 325 Mg Tab 325 Mg PO DAILY Vitamin D (Cholecalciferol) 1,000 Unit Tab 1,000 Units PO DAILY Tegretol (Carbamazepine) 200 Mg Tab 200 Mg PO BID Calcium 1200 (Calcium Carbonate-Vitamin D W/Minerals) 1,200-1,000 Mg-Unit Chew 1 Tab CHEW DAILY Atorvastatin (Atorvastatin Calcium) 10 Mg Tab 10 Mg PO HS Amlodipine (Amlodipine Besylate) 10 Mg Tab 10 Mg PO DAILY Xanax (Alprazolam) 0.25 Mg Tab 0.25 Mg PO Q8H PRN Active Ordered Medications Current Medications Medications (Trade) Dose Ordered Sig/Estelita Route PRN Reason Start Time Stop Time Status Last Admin Dose Admin Naloxone HCl (Narcan Inj) 0.4 mg UNSCH PRN IV SEE LABEL COMMENTS 04/02/17 22:00 Clonidine (Catapres) 0.1 mg Q6H PRN PO SYS BP GREATER THAN 160 MMHG 04/02/17 22:15 04/03/17 17:26 Amlodipine Besylate (Norvasc) 10 mg DAILY PO 04/03/17 09:00 04/03/17 09:01 Carbamazepine (TEGretol) 200 mg BID PO 04/03/17 09:00 04/03/17 21:30 Doxazosin Mesylate (Cardura) 1 mg HS PO 04/03/17 21:00 04/03/17 21:30 Nebivolol (Bystolic) 10 mg HS PO 04/03/17 21:00 04/03/17 21:30 Atorvastatin Calcium (Lipitor) 10 mg DAILY PO 04/03/17 09:00 04/03/17 09:01 Paroxetine HCl (Paxil) 20 mg DAILY PO 04/03/17 09:00 04/03/17 09:01 Alprazolam (Xanax) 0.25 mg Q8H PRN PO ANXIETY 04/03/17 07:15 04/03/17 09:01 Nicotine (Habitrol 14 Mg Patch.24 Hr) 1 patch DAILY T-DERMAL 04/03/17 09:00 Miscellaneous Information 1 1 HS T-DERMAL 04/03/17 21:00 Lactated Ringer's (Lr 1000 ml Inj) 1,000 ml @ 80 mls/hr [id number] IV 04/03/17 19:31 04/03/17 21:00 Sodium Chloride (NS Flush) 2 ml UNSCH PRN IV FLUSH FLUSH AFTER USING IV ACCESS 04/03/17 19:45 Sodium Chloride 2 ml 2 ml BID IV FLUSH 04/03/17 21:00 04/03/17 21:00 Cefazolin Sodium/ Dextrose (Ancef 2 Gm Premix) 50 ml @ 100 mls/hr Q6H IV 04/04/17 01:00 04/04/17 13:29 04/04/17 00:06 Rivaroxaban (Xarelto) 10 mg Q24H PO 04/04/17 08:00 Morphine Sulfate (Morphine Inj) 3 mg Q3H PRN IV PUSH Pain >7 when off THERAPY TECH 04/03/17 19:45 Acetaminophen/ Hydrocodone Bitart ([place] 5-325 Mg) 1 tab Q4H PRN PO PAIN LESS THAN 5 ON SCALE 04/03/17 19:45 Acetaminophen/ Hydrocodone Bitart ([place] 5-325 Mg) 2 tab Q4H PRN PO PAIN SCALE 5 TO 10 04/03/17 19:45 Acetaminophen (Tylenol) 650 mg Q6H PRN PO TEMPERATURE > 101 F 04/03/17 19:45 Multivitamins/ Minerals Therapeutic (Theragran M Tab) 1 tab BID PO 04/04/17 21:00 06/03/17 20:59 Ondansetron HCl (Zofran Inj) 4 mg Q6H PRN IVP NAUSEA OR VOMITING 04/03/17 19:45 Docusate Sodium (Colace) 100 mg BID PO 04/04/17 21:00 Al Hydrox/Mg Hydrox/Simethicone (Mag-Al Plus Susp Liq) 30 ml Q6H PRN PO INDIGESTION 04/03/17 19:45 Temazepam (Restoril) 15 mg HS PRN PO SLEEP 04/03/17 19:45 Bisacodyl (Dulcolax Supp) 10 mg DAILY PRN RECTAL CONSTIPATION 04/03/17 19:45 Magnesium Hydroxide (Milk Of Magnesia Liq) 30 ml DAILY PRN PO CONSTIPATION 04/03/17 19:45 Family History Noncontributory Social History Smokes one pack per day lifelong No alcohol and illicit drug abuse Physical Exam Vital Signs Vital Signs Date Time Temp Pulse Resp B/P Pulse Ox O2 Delivery O2 Flow Rate FiO2 04/03/17 22:00 89 26 139/79 91 Simple Mask 10 04/03/17 21:30 92 26 131/66 91 Simple Mask 10 04/03/17 21:00 99.1 108 26 138/67 93 Simple Mask 10 04/03/17 20:45 108 28 157/75 88 Simple Mask 10 04/03/17 20:30 125 25 145/85 93 Nasal Cannula 5 04/03/17 20:15 116 26 146/87 85 Non-Rebreather 100 04/03/17 20:10 98.2 119 24 180/79 82 Simple Mask 10 04/03/17 18:00 92 04/03/17 17:55 90 Nasal Cannula 3 04/03/17 17:55 98.6 86 15 174/87 90 04/03/17 17:40 98.5 88 17 149/70 92 04/03/17 16:00 99.2 84 18 172/74 92 04/03/17 12:00 99.3 83 18 146/66 92 04/03/17 09:07 17 04/03/17 09:03 94 Nasal Cannula 4.00 04/03/17 08:00 98.7 78 18 165/72 93 04/03/17 05:40 149/66 04/03/17 04:00 99.5 83 22 162/69 94 04/02/17 23:32 98.2 82 22 171/74 93 Physical Exam GENERAL: Elderly woman in no acute distress SKIN: Warm and dry. HEAD: Normocephalic. EYES: No scleral icterus. No injection or drainage. NECK: Supple, trachea midline. No JVD or lymphadenopathy. CARDIOVASCULAR: Regular rate and rhythm without murmurs, gallops, or rubs. RESPIRATORY: Breath sounds equal bilaterally. No accessory muscle use. GASTROINTESTINAL: Abdomen soft, non-tender, nondistended. MUSCULOSKELETAL: No cyanosis, or edema. BACK: Nontender without obvious deformity. No CVA tenderness. EXTREMITIES: No clubbing cyanosis or edema Laboratory Date/Time Procedure Status Source Growth 04/02/17 20:20 Urine Culture - Preliminary Resulted Urine Clean Catch IMMATURE GROWTH - REINCUBATE Result Diagram: 04/02/17201904/02/172019 Imaging Last 24 hours Impressions Chest X-Ray 04/03/172021 Signed Impressions: Service Date/Time: Monday, April 03, 2017 20:32 - CONCLUSION: 1. Cardiomegaly and findings of vascular congestion without overt failure. This is new when compared with the prior exam. Darek Burns MD Assessment and Plan Assessment and Plan Hip fracture - Status post fall T - ORIF per Dr. Grewal - Management per orthopedic surgery Hypertension - Resume home meds - SBP goal less than 160 COPD - No exacerbation - DuoNeb's scheduled and when necessary - No Indication for steroids at this time - BiPAP at bedtime Trigeminal neuralgia - Tegretol Hyperlipidemia - Continue Atorvastatin Hypothyroidism - Synthroid History of she lacunar CVA - Resume Plavix when okay with surgeon DVT GI prophylaxis - Xarelto - Heart healthy diet Critical Care: The total critical care time was 35 minutes. Time to perform other separately billable procedures was not included in the critical care time. Evan Gamble MD April 03, 2017 23:17
[2017-04-04] VITALS (13 sets, daily range): BP systolic 124–165; BP diastolic 58–72; PULSE 75–96; RESP 16–21; TEMP 98–99.5; O2SAT 91–95
[2017-04-04] MEDS: ceFAZolin 2 GM PREMIX 50 ML IV SCH ×3 (00:06→13:52)
[2017-04-04] MEDS: RESP: ALBUTEROL 2.5 MG/IPRATROPIUM 0.5 MG NEB (SCH) NEB ×4 (03:44→19:45)
[2017-04-04] MEDS: ACETAMINOPHEN/HYDROcodone 325 MG/5 MG TAB PO PRN ×3 (03:45→19:02)
[2017-04-04] MEDS: cloNIDine HCL 0.1 MG TAB PO PRN (03:45)
[2017-04-04 05:04] LABS: HEMATOCRIT 34.2 % (35.0-46.0); REVIEW FLAG FINAL
--- NOTE | 2017-04-04 07:20 | HHI.CCPN ---
Subjective Remarks/Hospital Course Hospital Course: 76 year-old white female with history of hypertension, previous CVA, hyperlipidemia, anxiety, trigeminal neuralgia and hypothyroidism. She was at home in her usual state of health and was attempting to sit down on the commode when she lost her balance and fell to the floor. She had sudden onset of right proximal femur pain. She was diagnosed with a hip fracture and was taken to operating room for ORIF. In the PACU she was found to be in respiratory distress with tachycardia and SCDs. Critical care was consulted for COPD exacerbation. Subjective: 04/04: doing well. on 5L o2 by NC. not in any distress this morning. states she is cold and hungry. denies SOB. endorses only mild hip pain at her surgical site. Objective Vital Signs Date Time Temp Pulse Resp B/P Pulse Ox O2 Delivery O2 Flow Rate FiO2 04/04/17 06:00 Nasal Cannula 5.00 04/04/17 04:45 16 04/04/17 04:00 98.1 96 165/72 94 04/04/17 00:00 50 Intake and Output 04/03/17 04/03/17 04/04/17 08:00 16:00 00:00 Intake Total 571 ml 2802 ml Output Total 350 ml 900 ml 1400 ml Balance 221 ml -900 ml 1402 ml Result Diagram: 04/04/1742304/02/172019 Imaging Last 24 hours Impressions Chest X-Ray 04/03/172021 Signed Impressions: Service Date/Time: Monday, April 03, 2017 20:32 - CONCLUSION: 1. Cardiomegaly and findings of vascular congestion without overt failure. This is new when compared with the prior exam. Darek Burns MD Objective Remarks GENERAL: Elderly woman in no acute distress SKIN: Warm and dry. HEAD: Normocephalic. EYES: No scleral icterus. No injection or drainage. NECK: trachea midline. No JVD. CARDIOVASCULAR: Regular rate and rhythm without murmurs, gallops, or rubs. RESPIRATORY: Breath sounds equal bilaterally. No accessory muscle use. no wheezing. no rales. GASTROINTESTINAL: Abdomen soft, non-tender, nondistended. MUSCULOSKELETAL: No cyanosis, or edema. EXTREMITIES: No clubbing cyanosis or edema Neuro: awake, alert, oriented. RASS 0. no focal deficits. A/P Assessment and Plan Assessment: 76yF s/p ORIF femur with transient post-operative respiratory insufficiency, now resolved. I agree with Dr. Gamble that there does not appear to be a COPD exacerbation component to this, and steroids are not warranted at this time. She is clinically improving. We will encourage aggressive pulmonary toilet. Hip fracture - Status post fall T - ORIF per Dr. Grewal - Management per orthopedic surgery Hypertension - Resume home meds - SBP goal less than 160 COPD - No exacerbation - DuoNeb's scheduled and when necessary - No Indication for steroids at this time - Aggressive pulmonary toilet. - PT consult. Trigeminal neuralgia - Tegretol Hyperlipidemia - Continue Atorvastatin - advance diet to heart healthy. Hypothyroidism - Synthroid History of she lacunar CVA - Resume Plavix when okay with surgeon DVT GI prophylaxis - Xarelto - Heart healthy diet Dispo: safe to transfer to floor. Critical Care medicine will sign off. Please re-consult as needed. Juan Hirsch MD April 04, 2017 07:20
--- NOTE | 2017-04-04 07:26 | PD.ORT.PN ---
Subjective Post Op Day #: 1 Subjective Remarks Patient sitting upright in bed, awake and alert, answering questions appropriately. Admits to thirst. RN at bedside. Patient in ICU d/t COPD exacerbation post op. Admits right LE pain well controlled. No other complaints. Objective Vitals Vital Signs Date Time Temp Pulse Resp B/P Pulse Ox O2 Delivery O2 Flow Rate FiO2 04/04/17 06:00 Nasal Cannula 5.00 04/04/17 04:45 16 04/04/17 04:00 Nasal Cannula 5.00 04/04/17 04:00 98.1 96 21 165/72 94 04/04/17 03:46 92 Nasal Cannula 6.00 04/04/17 02:00 Nasal Cannula 5.00 04/04/17 00:20 94 10.00 04/04/17 00:00 98.0 79 20 163/71 93 04/04/17 00:00 Simple Mask 10.00 04/04/17 00:00 93 50 04/03/17 22:00 98.1 88 17 135/65 90 04/03/17 22:00 89 26 139/79 91 Simple Mask 10 04/03/17 22:00 Simple Mask 10.00 04/03/17 21:30 92 26 131/66 91 Simple Mask 10 04/03/17 21:00 99.1 108 26 138/67 93 Simple Mask 10 04/03/17 20:45 108 28 157/75 88 Simple Mask 10 04/03/17 20:30 125 25 145/85 93 Nasal Cannula 5 04/03/17 20:15 116 26 146/87 85 Non-Rebreather 100 04/03/17 20:10 98.2 119 24 180/79 82 Simple Mask 10 04/03/17 18:00 92 04/03/17 17:55 90 Nasal Cannula 3 04/03/17 17:55 98.6 86 15 174/87 90 04/03/17 17:40 98.5 88 17 149/70 92 04/03/17 16:00 99.2 84 18 172/74 92 04/03/17 12:00 99.3 83 18 146/66 92 04/03/17 09:07 17 04/03/17 09:03 94 Nasal Cannula 4.00 04/03/17 08:00 98.7 78 18 165/72 93 I/O 04/03/17 04/03/17 04/03/17 04/04/17 04/04/17 04/04/17 07:00 15:00 23:00 07:00 15:00 23:00 Intake Total 571 ml 2802 ml 986 ml Output Total 1225 ml 2300 ml 1200 ml Balance -654 ml 502 ml -214 ml Intake Oral 60 ml 200 ml IV Total 571 ml 1042 ml 786 ml Other 1700 ml Output Urine Total 1225 ml 2050 ml 1200 ml Estimated Blood Loss 50 ml Other 200 ml # Bowel Movements 0 0 0 Result Diagram: 04/04/17 0424 04/02/172019 Imaging Last Impressions Chest X-Ray 04/03/172021 Signed Impressions: Service Date/Time: Monday, April 03, 2017 20:32 - CONCLUSION: 1. Cardiomegaly and findings of vascular congestion without overt failure. This is new when compared with the prior exam. Darek Burns MD Hip X-Ray 04/03/17 0000 Signed Impressions: Service Date/Time: Monday, April 03, 2017 19:20 - CONCLUSION: Postsurgical changes as above. Darek Burns MD Head CT 04/02/172009 Signed Impressions: Service Date/Time: Sunday, April 02, 2017 20:35 - CONCLUSION: 1. No acute findings. Small lacunar infarct right thalamus. Chronic white matter ischemic changes are stable. Hilton Villagran MD Hip and Pelvis X-Ray 04/02/17 0000 Signed Impressions: Service Date/Time: Sunday, April 02, 2017 18:22 - CONCLUSION: 1. Mildly displaced fracture right femoral neck. Hilton Villagran MD Last 24 hours Impressions Chest X-Ray 04/03/172021 Signed Impressions: Service Date/Time: Monday, April 03, 2017 20:32 - CONCLUSION: 1. Cardiomegaly and findings of vascular congestion without overt failure. This is new when compared with the prior exam. Darek Burns MD Procedures Closed reduction, percutaneous screw fixation right femoral neck fracture () Objective Remarks RLE: Dressing dry and intact. Tender to palpation with mild swelling around incision site. Appropriate range of motion expected post operatively. Freely able to move distal digits. No calf pain. Negative Samara's sign. Good cap refill. 2+ pedal pulses. Neurovascular intact. Assessment & Plan Ortho Post Op Day #: 1 Problem List: (1) Fracture of femoral neck, right (2) COPD (chronic obstructive pulmonary disease) (3) Hyperlipidemia (4) Hypothyroidism (5) Osteopenia (6) Anxiety (7) Hypertension (8) Depression (9) UTI (urinary tract infection) (10) CVA (cerebral infarction) Assessment and Plan Ortho status stable POD #1 Closed reduction, percutaneous screw fixation right femoral neck fracture Progress rehab, toe touch w/b RLE Xarelto for DVT prophylaxis. Starting POD #2 Daily dressing changes Continue pain management and bowel regimen. Discharge planning. Candice Villaseñor April 04, 2017 07:26
[2017-04-04] MEDS: SODIUM CHLORIDE 0.9% FLUSH 10 ML FLUSH IV FLUSH SCH ×2 (07:51→20:29)
[2017-04-04] MEDS: NICOTINE 14 MG/24 HR PATCH T-DERMAL SCH ×2 (09:00→09:15)
[2017-04-04] MEDS: carBAMazepine 200 MG TAB PO SCH ×2 (09:12→20:28)
[2017-04-04] MEDS: ATORVASTATIN 10 MG TAB PO SCH (09:12)
[2017-04-04] MEDS: PARoxetine HCL 20 MG TAB PO SCH (09:12)
[2017-04-04] MEDS: RIVAROXABAN 10 MG TAB PO SCH (09:13)
--- NOTE | 2017-04-04 18:48 | HHI.PR ---
Subjective Remarks POD #1 S/P Closed reduction with percutaneous screw placement. Patient had persistnet hypoxemia post-op. Was transferred to ICU. Currently stable on O2 at 5 l/min NC. Being transferred back to floor. Pain under adequate control. Was OOb in chair today. Denies cough or sensation of SOB. No chest pain, Nausea or emesis. Current Medications Medications (Trade) Dose Ordered Sig/Estelita Route Start Time Stop Time Status Last Admin (Narcan Inj) 0.4 mg UNSCH PRN IV 04/02/17 22:00 (Catapres) 0.1 mg Q6H PRN PO 04/02/17 22:15 04/04/17 03:45 (Norvasc) 10 mg DAILY PO 04/03/17 09:00 04/04/17 09:12 (TEGretol) 200 mg BID PO 04/03/17 09:00 04/04/17 09:12 (Cardura) 1 mg HS PO 04/03/17 21:00 04/03/17 21:30 (Bystolic) 10 mg HS PO 04/03/17 21:00 04/03/17 21:30 (Lipitor) 10 mg DAILY PO 04/03/17 09:00 04/04/17 09:12 (Paxil) 20 mg DAILY PO 04/03/17 09:00 04/04/17 09:12 (Xanax) 0.25 mg Q8H PRN PO 04/03/17 07:15 04/03/17 09:01 (Habitrol 14 Mg Patch.24 Hr) 1 patch DAILY T-DERMAL 04/03/17 09:00 Miscellaneous Information 1 HS T-DERMAL 04/03/17 21:00 (NS Flush) 2 ml UNSCH PRN IV FLUSH 04/03/17 19:45 (NS Flush) 2 ml BID IV FLUSH 04/03/17 21:00 04/04/17 07:51 (Xarelto) 10 mg Q24H PO 04/04/17 08:00 04/04/17 09:13 (Morphine Inj) 3 mg Q3H PRN IV PUSH 04/03/17 19:45 ([place] 5-325 Mg) 1 tab Q4H PRN PO 04/03/17 19:45 04/04/17 09:17 ([place] 5-325 Mg) 2 tab Q4H PRN PO 04/03/17 19:45 (Tylenol) 650 mg Q6H PRN PO 04/03/17 19:45 (Theragran M Tab) 1 tab BID PO 04/04/17 21:00 06/03/17 20:59 (Zofran Inj) 4 mg Q6H PRN IVP 04/03/17 19:45 (Colace) 100 mg BID PO 04/04/17 21:00 (Mag-Al Plus Susp Liq) 30 ml Q6H PRN PO 04/03/17 19:45 (Restoril) 15 mg HS PRN PO 04/03/17 19:45 (Dulcolax Supp) 10 mg DAILY PRN RECTAL 04/03/17 19:45 (Milk Of Magnesia Liq) 30 ml DAILY PRN PO 04/03/17 19:45 Objective Vital Signs Date Time Temp Pulse Resp B/P Pulse Ox O2 Delivery O2 Flow Rate FiO2 04/04/17 18:00 86 04/04/17 16:00 75 04/04/17 16:00 98.3 75 18 131/60 95 04/04/17 14:00 78 04/04/17 12:00 99.3 78 16 124/58 92 04/04/17 12:00 78 04/04/17 10:00 83 04/04/17 08:04 93 Nasal Cannula 6.00 04/04/17 08:00 98.1 96 21 165/72 94 04/04/17 08:00 85 04/04/17 07:00 94 Nasal Cannula 5.00 04/04/17 06:00 Nasal Cannula 5.00 04/04/17 04:45 16 04/04/17 04:00 Nasal Cannula 5.00 04/04/17 04:00 98.1 96 21 165/72 94 04/04/17 03:46 92 Nasal Cannula 6.00 04/04/17 02:00 Nasal Cannula 5.00 04/04/17 00:20 94 10.00 04/04/17 00:00 98.0 79 20 163/71 93 04/04/17 00:00 Simple Mask 10.00 04/04/17 00:00 93 50 04/03/17 22:00 98.1 88 17 135/65 90 04/03/17 22:00 91 Simple Mask 10.00 04/03/17 22:00 89 26 139/79 91 Simple Mask 10 04/03/17 22:00 Simple Mask 10.00 04/03/17 21:30 92 26 131/66 91 Simple Mask 10 04/03/17 21:00 99.1 108 26 138/67 93 Simple Mask 10 04/03/17 20:45 108 28 157/75 88 Simple Mask 10 04/03/17 20:30 125 25 145/85 93 Nasal Cannula 5 04/03/17 20:15 116 26 146/87 85 Non-Rebreather 100 04/03/17 20:10 98.2 119 24 180/79 82 Simple Mask 10 I/O 04/03/17 04/03/17 04/03/17 04/04/17 04/04/17 04/04/17 07:00 15:00 23:00 07:00 15:00 23:00 Intake Total 571 ml 2802 ml 986 ml 530 ml 240 ml Output Total 1225 ml 2300 ml 1200 ml 350 ml 400 ml Balance -654 ml 502 ml -214 ml 180 ml -160 ml Intake Oral 60 ml 200 ml 480 ml 240 ml IV Total 571 ml 1042 ml 786 ml 50 ml Other 1700 ml Output Urine Total 1225 ml 2050 ml 1200 ml 350 ml 400 ml Estimated Blood Loss 50 ml Other 200 ml # Bowel Movements 0 0 0 0 CV: RRR Lungs: CTA mildly reduced air exchange Result Diagram: 04/04/17 0424 04/02/172019 Assessment and Plan Problem List: (1) Fracture of femoral neck, right Status: Acute Plan: POD #1. Cont PT. OOB, Pain medication prn. Wound care and wt bearing status per ortho (2) COPD (chronic obstructive pulmonary disease) Status: Chronic Plan: Patient with hypoxemia post-op. Aggressive pulmonary toilet. Cont Nebs. OOB as much as tolerated (3) UTI (urinary tract infection) Status: Acute Plan: Urine culture positive for Strp viridans. Awaiting ALEX's. Patient received perioperative antibiotics (4) Hypertension Status: Chronic Plan: BP under adequate control with current medications (5) Anxiety Status: Chronic Plan: Cont Paxil. Xanax prn (6) Trigeminal neuralgia pain Status: Chronic Plan: Cont Carbamazepine (7) Hyperlipidemia Status: Chronic Plan: Cont current medication Assessment and Plan Agree with Xarelto for DVT prophylaxis Discharge Planning Patient will need inpatient rehab vs subacute rehab. Case management consult placed Problem Qualifiers (1) Fracture of femoral neck, right: Qualified Code: S72.001A - Closed fracture of neck of right femur, initial encounter (2) COPD (chronic obstructive pulmonary disease): Qualified Code: J43.9 - Pulmonary emphysema, unspecified emphysema type (3) UTI (urinary tract infection): Qualified Code: N39.0 - Urinary tract infection without hematuria, site unspecified (4) Hypertension: Qualified Code: I10 - Essential hypertension (5) Hyperlipidemia: Qualified Code: E78.2 - Mixed hyperlipidemia Olvin Hugo MD April 04, 2017 18:48
[2017-04-04] MEDS: DOCUSATE SODIUM 100 MG CAP PO SCH (20:28)
[2017-04-04] MEDS: MAGNESIUM HYDROXIDE SUSP 30 ML CUP PO PRN (20:28)
[2017-04-04] MEDS: MULTIVITAMINS/MINERALS THERAPEUTIC TAB PO SCH (20:28)
[2017-04-04] MEDS: REMOVE OLD PATCH T-DERMAL SCH (21:00)
[2017-04-04] MEDS: DOXAZOSIN MESYLATE 1 MG TAB PO SCH (22:47)
[2017-04-04] MEDS: NEBIVOLOL 10 MG TAB PO SCH (22:48)
[2017-04-05] VITALS (9 sets, daily range): BP systolic 103–198; BP diastolic 60–79; PULSE 74–84; RESP 16–19; TEMP 96.9–99.2; O2SAT 88–94
[2017-04-05] MEDS: ACETAMINOPHEN/HYDROcodone 325 MG/5 MG TAB PO PRN ×3 (02:32→14:04)
[2017-04-05] MEDS: RESP: ALBUTEROL 2.5 MG/IPRATROPIUM 0.5 MG NEB (SCH) NEB ×3 (03:41→16:00)
[2017-04-05 07:17] LABS: HEMATOCRIT 33.4 % (35.0-46.0); MEAN CELL VOLUME 96.6 FL (80.0-100.0); MEAN CORPUSCULAR HEMOGLOBIN 31.5 PG (27.0-34.0); MEAN CORPUSCULAR HGB CONC 32.6 % (32.0-36.0); PLATELET COUNT 154 TH/MM3 (150-450); RED BLOOD COUNT 3.46 MIL/MM3 (4.00-5.30); REVIEW FLAG FINAL; WHITE BLOOD COUNT 9.9 TH/MM3 (4.0-11.0)
--- NOTE | 2017-04-05 07:28 | PD.ORT.PN ---
Subjective Post Op Day #: 2 Subjective Remarks Patient sitting upright in bed, awake and alert, answering questions appropriately. Pt returned to floor. Admits right LE pain well controlled. She does not feel ready for d/c today, but possibly tomorrow. No other complaints. Objective Vitals Vital Signs Date Time Temp Pulse Resp B/P Pulse Ox O2 Delivery O2 Flow Rate FiO2 04/05/17 04:00 99.2 84 17 146/76 91 04/05/17 00:00 98.7 83 16 150/60 92 04/04/17 19:56 99.5 78 20 161/65 91 04/04/17 19:50 92 Nasal Cannula 5.00 04/04/17 19:00 Nasal Cannula 3.00 04/04/17 18:00 86 04/04/17 16:00 75 04/04/17 16:00 98.3 75 18 131/60 95 04/04/17 14:00 78 04/04/17 12:00 99.3 78 16 124/58 92 04/04/17 12:00 78 04/04/17 10:00 83 04/04/17 08:04 93 Nasal Cannula 6.00 04/04/17 08:00 98.1 96 21 165/72 94 04/04/17 08:00 85 I/O 04/04/17 04/04/17 04/04/17 04/05/17 04/05/17 04/05/17 07:00 15:00 23:00 07:00 15:00 23:00 Intake Total 986 ml 530 ml 480 ml 240 ml Output Total 1200 ml 350 ml 400 ml Balance -214 ml 180 ml 80 ml 240 ml Intake Oral 200 ml 480 ml 480 ml 240 ml IV Total 786 ml 50 ml Output Urine Total 1200 ml 350 ml 400 ml # Voids 1 # Bowel Movements 0 0 Result Diagram: 04/05/17 0646 04/02/172019 Imaging Last Impressions Chest X-Ray 04/03/172021 Signed Impressions: Service Date/Time: Monday, April 03, 2017 20:32 - CONCLUSION: 1. Cardiomegaly and findings of vascular congestion without overt failure. This is new when compared with the prior exam. Darek Burns MD Hip X-Ray 04/03/17 0000 Signed Impressions: Service Date/Time: Monday, April 03, 2017 19:20 - CONCLUSION: Postsurgical changes as above. Darek Burns MD Head CT 04/02/172009 Signed Impressions: Service Date/Time: Sunday, April 02, 2017 20:35 - CONCLUSION: 1. No acute findings. Small lacunar infarct right thalamus. Chronic white matter ischemic changes are stable. Hilton Villagran MD Hip and Pelvis X-Ray 04/02/17 0000 Signed Impressions: Service Date/Time: Sunday, April 02, 2017 18:22 - CONCLUSION: 1. Mildly displaced fracture right femoral neck. Hilton Villagran MD Last 24 hours Impressions Chest X-Ray 04/03/172021 Signed Impressions: Service Date/Time: Monday, April 03, 2017 20:32 - CONCLUSION: 1. Cardiomegaly and findings of vascular congestion without overt failure. This is new when compared with the prior exam. Darek Burns MD Procedures Closed reduction, percutaneous screw fixation right femoral neck fracture () Objective Remarks RLE: Dressing dry and intact. Tender to palpation with mild swelling around incision site. Appropriate range of motion expected post operatively. Freely able to move distal digits. No calf pain. Negative Samara's sign. Good cap refill. 2+ pedal pulses. Neurovascular intact. Assessment & Plan Ortho Post Op Day #: 2 Problem List: (1) Fracture of femoral neck, right (2) COPD (chronic obstructive pulmonary disease) (3) Hyperlipidemia (4) Hypothyroidism (5) Osteopenia (6) Anxiety (7) Hypertension (8) Depression (9) UTI (urinary tract infection) (10) CVA (cerebral infarction) Assessment and Plan Ortho status stable POD #2 Closed reduction, percutaneous screw fixation right femoral neck fracture Progress rehab, toe touch w/b RLE Xarelto for DVT prophylaxis. Daily dressing changes, RN in rehab facility to d/c giana 04/11/17 Continue pain management and bowel regimen. Will be clear for discharge from an orthopedic standpoint to rehab facility, most likely tomorrow. Xarelto RX on chart. Candice Villaseñor April 05, 2017 07:28
[2017-04-05] MEDS ORDERED: XARE10TA PO (07:30)
[2017-04-05] MEDS ORDERED: WALKER/ADULT/FO1 MIS (07:30)
[2017-04-05] MEDS: RIVAROXABAN 10 MG TAB PO SCH (08:50)
[2017-04-05] MEDS: NICOTINE 14 MG/24 HR PATCH T-DERMAL SCH (09:00)
[2017-04-05] MEDS: SODIUM CHLORIDE 0.9% FLUSH 10 ML FLUSH IV FLUSH SCH ×2 (09:00→21:22)
[2017-04-05] MEDS: MULTIVITAMINS/MINERALS THERAPEUTIC TAB PO SCH ×2 (10:08→21:21)
[2017-04-05] MEDS: ATORVASTATIN 10 MG TAB PO SCH (10:08)
[2017-04-05] MEDS: carBAMazepine 200 MG TAB PO SCH ×2 (10:08→21:21)
[2017-04-05] MEDS: DOCUSATE SODIUM 100 MG CAP PO SCH ×2 (10:09→21:21)
[2017-04-05] MEDS: PARoxetine HCL 20 MG TAB PO SCH (10:09)
--- NOTE | 2017-04-05 11:06 | HHI.PR ---
Subjective Remarks Remains on 4 l/min NC O2. No cough. PO intake fair. C/O hip pain and generalized arthralgias. No chest pain. BP higher today Current Medications Medications (Trade) Dose Ordered Sig/Estelita Route Start Time Stop Time Status Last Admin (Narcan Inj) 0.4 mg UNSCH PRN IV 04/02/17 22:00 (Catapres) 0.1 mg Q6H PRN PO 04/02/17 22:15 04/04/17 03:45 (Norvasc) 10 mg DAILY PO 04/03/17 09:00 04/05/17 10:08 (TEGretol) 200 mg BID PO 04/03/17 09:00 04/05/17 10:08 (Cardura) 1 mg HS PO 04/03/17 21:00 04/04/17 22:47 (Lipitor) 10 mg DAILY PO 04/03/17 09:00 04/05/17 10:08 (Paxil) 20 mg DAILY PO 04/03/17 09:00 04/05/17 10:09 (Xanax) 0.25 mg Q8H PRN PO 04/03/17 07:15 04/03/17 09:01 (Habitrol 14 Mg Patch.24 Hr) 1 patch DAILY T-DERMAL 04/03/17 09:00 Miscellaneous Information 1 HS T-DERMAL 04/03/17 21:00 (NS Flush) 2 ml UNSCH PRN IV FLUSH 04/03/17 19:45 (NS Flush) 2 ml BID IV FLUSH 04/03/17 21:00 04/04/17 07:51 (Xarelto) 10 mg Q24H PO 04/04/17 08:00 04/05/17 08:50 (Morphine Inj) 3 mg Q3H PRN IV PUSH 04/03/17 19:45 ([place] 5-325 Mg) 1 tab Q4H PRN PO 04/03/17 19:45 04/05/17 10:10 ([place] 5-325 Mg) 2 tab Q4H PRN PO 04/03/17 19:45 (Tylenol) 650 mg Q6H PRN PO 04/03/17 19:45 (Theragran M Tab) 1 tab BID PO 04/04/17 21:00 06/03/17 20:59 04/05/17 10:08 (Zofran Inj) 4 mg Q6H PRN IVP 04/03/17 19:45 (Colace) 100 mg BID PO 04/04/17 21:00 04/05/17 10:09 (Mag-Al Plus Susp Liq) 30 ml Q6H PRN PO 04/03/17 19:45 (Restoril) 15 mg HS PRN PO 04/03/17 19:45 (Dulcolax Supp) 10 mg DAILY PRN RECTAL 04/03/17 19:45 (Milk Of Magnesia Liq) 30 ml DAILY PRN PO 04/03/17 19:45 04/04/17 20:28 (Bystolic) 20 mg HS PO 04/05/17 21:00 UNV (Deltasone) 20 mg DAILY PO 04/05/17 11:00 UNV Objective Vital Signs Date Time Temp Pulse Resp B/P Pulse Ox O2 Delivery O2 Flow Rate FiO2 04/05/17 10:43 92 Nasal Cannula 5.00 04/05/17 10:12 Nasal Cannula 4.00 Humidified 04/05/17 07:37 97.6 78 18 177/74 94 04/05/17 04:00 99.2 84 17 146/76 91 04/05/17 00:00 98.7 83 16 150/60 92 04/04/17 19:56 99.5 78 20 161/65 91 04/04/17 19:50 92 Nasal Cannula 5.00 04/04/17 19:00 Nasal Cannula 3.00 04/04/17 18:00 86 04/04/17 16:00 75 04/04/17 16:00 98.3 75 18 131/60 95 04/04/17 14:00 78 04/04/17 12:00 99.3 78 16 124/58 92 04/04/17 12:00 78 I/O 04/04/17 04/04/17 04/04/17 04/05/17 04/05/17 04/05/17 07:00 15:00 23:00 07:00 15:00 23:00 Intake Total 986 ml 530 ml 480 ml 240 ml Output Total 1200 ml 350 ml 400 ml Balance -214 ml 180 ml 80 ml 240 ml Intake Oral 200 ml 480 ml 480 ml 240 ml IV Total 786 ml 50 ml Output Urine Total 1200 ml 350 ml 400 ml # Voids 1 # Bowel Movements 0 0 CV: RRR Lungs: Exp wheezes, diminished air exchange, no rales or rhonchi Abd: distended, soft, Nt, +BS Ext: no edema, perfusion intact distally Result Diagram: 04/05/17 0646 04/02/172019 Assessment and Plan Problem List: (1) Fracture of femoral neck, right Status: Acute Plan: POD #2. Cont PT. OOB, Pain medication prn. Wound care and wt bearing status per ortho (2) COPD (chronic obstructive pulmonary disease) Status: Chronic Plan: Patient wheezing. Add Prednisone. Cont Nebs and wean O2 as tolerated (3) UTI (urinary tract infection) Status: Acute Plan: Urine culture positive for Strep viridans. Begin Macrobid (4) Hypertension Status: Chronic Plan: BP higher, Increase dose Bystolic (5) Anxiety Status: Chronic Plan: Cont Paxil. Xanax prn (6) Trigeminal neuralgia pain Status: Chronic Plan: Cont Carbamazepine (7) Hyperlipidemia Status: Chronic Plan: Cont current medication Assessment and Plan Xarelto for DVT prophylaxis Problem Qualifiers (1) Fracture of femoral neck, right: Qualified Code: S72.001A - Closed fracture of neck of right femur, initial encounter (2) COPD (chronic obstructive pulmonary disease): Qualified Code: J43.9 - Pulmonary emphysema, unspecified emphysema type (3) UTI (urinary tract infection): Qualified Code: N39.0 - Urinary tract infection without hematuria, site unspecified (4) Hypertension: Qualified Code: I10 - Essential hypertension (5) Hyperlipidemia: Qualified Code: E78.2 - Mixed hyperlipidemia Olvin Hugo MD April 05, 2017 11:06
[2017-04-05] MEDS: predniSONE 20 MG TAB PO SCH (13:07)
[2017-04-05] MEDS: MAGNESIUM HYDROXIDE SUSP 30 ML CUP PO PRN (13:07)
[2017-04-05] MEDS: NITROFURANTOIN MONOHYD MACROCR 100 MG CAP PO SCH ×2 (13:07→17:09)
[2017-04-05] MEDS: REMOVE OLD PATCH T-DERMAL SCH (21:00)
[2017-04-05] MEDS ORDERED: NEBIVOLOL 10 MG TAB PO SCH (21:00)
[2017-04-05] MEDS: DOXAZOSIN MESYLATE 1 MG TAB PO SCH (21:21)
[2017-04-05] MEDS: cloNIDine HCL 0.1 MG TAB PO PRN (23:35)
[2017-04-06 04:00] VITALS: BP 164/73; PULSE 71; RESP 18; TEMP 97; O2SAT 90
[2017-04-06] MEDS: RESP: ALBUTEROL 2.5 MG/IPRATROPIUM 0.5 MG NEB (SCH) NEB ×2 (04:11→10:19)
[2017-04-06 04:13] VITALS: O2SAT 90
[2017-04-06 05:44] LABS: BICARBONATE 29.3 MEQ/L (21.0-32.0); POTASSIUM 3.3 MEQ/L (3.5-5.1)
[2017-04-06] MEDS: ACETAMINOPHEN/HYDROcodone 325 MG/5 MG TAB PO PRN (06:47)
--- NOTE | 2017-04-06 07:28 | PD.ORT.PN ---
Subjective Post Op Day #: 3 Subjective Remarks pain appears under control. Objective Vitals Vital Signs Date Time Temp Pulse Resp B/P Pulse Ox O2 Delivery O2 Flow Rate FiO2 04/06/17 04:13 90 Nasal Cannula 4.00 04/06/17 04:00 97.0 71 18 164/73 90 04/05/17 23:33 96.9 82 17 198/79 92 04/05/17 20:56 92 Nasal Cannula 4.00 04/05/17 19:00 97.9 78 19 179/75 93 04/05/17 16:12 97.9 74 18 144/70 94 04/05/17 12:10 97.4 76 18 103/70 94 04/05/17 12:10 Nasal Cannula 4.00 Humidified 04/05/17 10:43 92 Nasal Cannula 5.00 04/05/17 10:12 Nasal Cannula 4.00 Humidified 04/05/17 07:37 97.6 78 18 177/74 94 I/O 04/05/17 04/05/17 04/05/17 04/06/17 04/06/17 04/06/17 07:00 15:00 23:00 07:00 15:00 23:00 Intake Total 240 ml 360 ml 480 ml 480 ml Balance 240 ml 360 ml 480 ml 480 ml Intake Oral 240 ml 360 ml 480 ml 480 ml # Voids 1 3 3 3 # Bowel Movements 0 0 Result Diagram: 04/05/17 0646 04/06/17 0337 Imaging Last Impressions Chest X-Ray 04/03/172021 Signed Impressions: Service Date/Time: Monday, April 03, 2017 20:32 - CONCLUSION: 1. Cardiomegaly and findings of vascular congestion without overt failure. This is new when compared with the prior exam. Darek Burns MD Hip X-Ray 04/03/17 0000 Signed Impressions: Service Date/Time: Monday, April 03, 2017 19:20 - CONCLUSION: Postsurgical changes as above. Darek Burns MD Head CT 04/02/172009 Signed Impressions: Service Date/Time: Sunday, April 02, 2017 20:35 - CONCLUSION: 1. No acute findings. Small lacunar infarct right thalamus. Chronic white matter ischemic changes are stable. Hilton Villagran MD Hip and Pelvis X-Ray 04/02/17 0000 Signed Impressions: Service Date/Time: Sunday, April 02, 2017 18:22 - CONCLUSION: 1. Mildly displaced fracture right femoral neck. Hilton Villagran MD Last 24 hours Impressions Chest X-Ray 04/03/172021 Signed Impressions: Service Date/Time: Monday, April 03, 2017 20:32 - CONCLUSION: 1. Cardiomegaly and findings of vascular congestion without overt failure. This is new when compared with the prior exam. Darek Burns MD Procedures Closed reduction, percutaneous screw fixation right femoral neck fracture () Objective Remarks RLE: Dressing dry and intact. Tender to palpation with mild swelling around incision site. Appropriate range of motion expected post operatively. Freely able to move distal digits. No calf pain. Negative Samara's sign. Good cap refill. 2+ pedal pulses. Neurovascular intact. Assessment & Plan Ortho Post Op Day #: 3 Problem List: (1) Fracture of femoral neck, right (2) COPD (chronic obstructive pulmonary disease) (3) Hyperlipidemia (4) Hypothyroidism (5) Osteopenia (6) Anxiety (7) Hypertension (8) Depression (9) UTI (urinary tract infection) (10) CVA (cerebral infarction) Assessment and Plan Ortho status stable POD #3 Closed reduction, percutaneous screw fixation right femoral neck fracture Progress rehab, toe touch w/b RLE Xarelto for DVT prophylaxis. Daily dressing changes, RN in rehab facility to d/c [facility]iana 04/11/17 Continue pain management and bowel regimen. cleared for discharge from an orthopedic standpoint to rehab facility, today. Xarelto RX on chart. Rasheed Reece April 06, 2017 07:28
[2017-04-06] MEDS: SODIUM CHLORIDE 0.9% FLUSH 10 ML FLUSH IV FLUSH SCH ×2 (09:00→09:16)
[2017-04-06] MEDS: PARoxetine HCL 20 MG TAB PO SCH (09:00)
[2017-04-06] MEDS: NICOTINE 14 MG/24 HR PATCH T-DERMAL SCH (09:00)
[2017-04-06] MEDS: DOCUSATE SODIUM 100 MG CAP PO SCH (09:15)
[2017-04-06] MEDS: NITROFURANTOIN MONOHYD MACROCR 100 MG CAP PO SCH (09:15)
[2017-04-06] MEDS: predniSONE 20 MG TAB PO SCH (09:15)
[2017-04-06] MEDS: ATORVASTATIN 10 MG TAB PO SCH (09:15)
[2017-04-06] MEDS: MULTIVITAMINS/MINERALS THERAPEUTIC TAB PO SCH (09:15)
[2017-04-06] MEDS: RIVAROXABAN 10 MG TAB PO SCH (09:16)
[2017-04-06] MEDS: carBAMazepine 200 MG TAB PO SCH (09:16)
[2017-04-06] MEDS: MAGNESIUM HYDROXIDE SUSP 30 ML CUP PO PRN (09:16)
[2017-04-06 10:21] VITALS: O2SAT 91
--- NOTE | 2017-04-06 10:25 | HHI.PR ---
Subjective Remarks Pain under adequate control. Remains O2 dependent at 4 l/min NC. Denies cough , chest pain, nausea or emesis. OOB in chair yesterday. No BM since admission. Transferred to [facility] with mod assist of 2. Current Medications Medications (Trade) Dose Ordered Sig/Estelita Route Start Time Stop Time Status Last Admin (Narcan Inj) 0.4 mg UNSCH PRN IV 04/02/17 22:00 (Catapres) 0.1 mg Q6H PRN PO 04/02/17 22:15 04/05/17 23:35 (Norvasc) 10 mg DAILY PO 04/03/17 09:00 04/06/17 09:15 (TEGretol) 200 mg BID PO 04/03/17 09:00 04/06/17 09:16 (Cardura) 1 mg HS PO 04/03/17 21:00 04/05/17 21:21 (Lipitor) 10 mg DAILY PO 04/03/17 09:00 04/06/17 09:15 (Paxil) 20 mg DAILY PO 04/03/17 09:00 04/06/17 09:00 (Xanax) 0.25 mg Q8H PRN PO 04/03/17 07:15 04/03/17 09:01 (Habitrol 14 Mg Patch.24 Hr) 1 patch DAILY T-DERMAL 04/03/17 09:00 Miscellaneous Information 1 HS T-DERMAL 04/03/17 21:00 (NS Flush) 2 ml UNSCH PRN IV FLUSH 04/03/17 19:45 (NS Flush) 2 ml BID IV FLUSH 04/03/17 21:00 04/04/17 07:51 (Xarelto) 10 mg Q24H PO 04/04/17 08:00 04/06/17 09:16 (Morphine Inj) 3 mg Q3H PRN IV PUSH 04/03/17 19:45 ([place] 5-325 Mg) 1 tab Q4H PRN PO 04/03/17 19:45 04/06/17 06:47 ([place] 5-325 Mg) 2 tab Q4H PRN PO 04/03/17 19:45 (Tylenol) 650 mg Q6H PRN PO 04/03/17 19:45 (Theragran M Tab) 1 tab BID PO 04/04/17 21:00 06/03/17 20:59 04/06/17 09:15 (Zofran Inj) 4 mg Q6H PRN IVP 04/03/17 19:45 (Colace) 100 mg BID PO 04/04/17 21:00 04/06/17 09:15 (Mag-Al Plus Susp Liq) 30 ml Q6H PRN PO 04/03/17 19:45 (Restoril) 15 mg HS PRN PO 04/03/17 19:45 (Dulcolax Supp) 10 mg DAILY PRN RECTAL 04/03/17 19:45 (Milk Of Magnesia Liq) 30 ml DAILY PRN PO 04/03/17 19:45 04/06/17 09:16 (Bystolic) 20 mg HS PO 04/05/17 21:00 04/05/17 21:21 (Deltasone) 20 mg DAILY PO 04/05/17 12:00 04/06/17 09:15 (Macrobid) 100 mg BIDPC PO 04/05/17 12:00 04/06/17 09:15 (KCl) 20 meq DAILY PO 04/06/17 11:00 Objective Vital Signs Date Time Temp Pulse Resp B/P Pulse Ox O2 Delivery O2 Flow Rate FiO2 04/06/17 07:57 Nasal Cannula 4.00 50 04/06/17 04:13 90 Nasal Cannula 4.00 04/06/17 04:00 97.0 71 18 164/73 90 04/05/17 23:33 96.9 82 17 198/79 92 04/05/17 20:56 92 Nasal Cannula 4.00 04/05/17 19:00 97.9 78 19 179/75 93 04/05/17 16:12 97.9 74 18 144/70 94 04/05/17 12:10 97.4 76 18 103/70 94 04/05/17 12:10 Nasal Cannula 4.00 Humidified 04/05/17 10:43 92 Nasal Cannula 5.00 I/O 04/05/17 04/05/17 04/05/17 04/06/17 04/06/17 04/06/17 07:00 15:00 23:00 07:00 15:00 23:00 Intake Total 240 ml 360 ml 480 ml 480 ml 0 ml Balance 240 ml 360 ml 480 ml 480 ml 0 ml Intake Oral 240 ml 360 ml 480 ml 480 ml IV Total 0 ml # Voids 1 3 3 3 # Bowel Movements 0 0 CV: RRR Lungs: CTA Abd: soft, NT, mild distention, +BS Ext: No edema Result Diagram: 04/05/17 0646 04/06/17 0337 Assessment and Plan Problem List: (1) Fracture of femoral neck, right Status: Acute Plan: POD #3. Cont PT. OOB, Pain medication prn. Wound care and wt bearing status per ortho (2) COPD (chronic obstructive pulmonary disease) Status: Chronic Plan: No further wheezing. Cont Prednisone, O2 and nebs. Aggressive pulmonary toilet. Wean O2 as tolerated (3) UTI (urinary tract infection) Status: Acute Plan: Complete course Macrobid (4) Hypertension Status: Chronic Plan: BP variable. Continue current medication. Clonidine prn (5) Anxiety Status: Chronic Plan: Cont Paxil. Xanax prn (6) Trigeminal neuralgia pain Status: Chronic Plan: Cont Carbamazepine (7) Hyperlipidemia Status: Chronic Plan: Cont current medication (8) Iron deficiency anemia Status: Acute Plan: Begin FeSO4 and follow H&H (9) Personal history of transient ischemic attack (TIA), and cerebral infarction without residual deficits Status: Chronic Plan: Plavix on hold while on Xarelto. Will Rx ASA 81 mg daily for antiplatelet activity (10) Hypokalemia Status: Acute Plan: Begin KCL and follow K+ level Assessment and Plan Xarelto for DVT prophylaxis Discharge Planning OK to transfer to inpatient rehab today Problem Qualifiers (1) Fracture of femoral neck, right: Qualified Code: S72.001A - Closed fracture of neck of right femur, initial encounter (2) COPD (chronic obstructive pulmonary disease): Qualified Code: J43.9 - Pulmonary emphysema, unspecified emphysema type (3) UTI (urinary tract infection): Qualified Code: N39.0 - Urinary tract infection without hematuria, site unspecified (4) Hypertension: Qualified Code: I10 - Essential hypertension (5) Hyperlipidemia: Qualified Code: E78.2 - Mixed hyperlipidemia (6) Iron deficiency anemia: Qualified Code: D50.9 - Iron deficiency anemia, unspecified iron deficiency anemia type Olvin Hugo MD April 06, 2017 10:25
[2017-04-06] MEDS ORDERED: HYDR-3516 PO (10:35)
[2017-04-06] MEDS ORDERED: PRED20 PO (10:35)
[2017-04-06] MEDS ORDERED: IPRASOL NEB (10:35)
[2017-04-06] MEDS ORDERED: NICO14DI T-DERMAL (10:35)
[2017-04-06] MEDS ORDERED: ACET325T PO (10:35)
[2017-04-06] MEDS ORDERED: BYST10TA2 PO (10:35)
[2017-04-06] MEDS ORDERED: MACR100C2 PO (10:35)
[2017-04-06] MEDS ORDERED: MILKSUS PO (10:35)
[2017-04-06] MEDS ORDERED: CLON.1 PO (10:35)
[2017-04-06] MEDS ORDERED: POTA20TA5 PO (10:35)
[2017-04-06] MEDS ORDERED: DOCU1CAP39 PO (10:35)
[2017-04-06] MEDS ORDERED: FERROUS SULFATE 325 MG (65 MG ELEMENTAL IRON) TAB PO SCH (11:00)
[2017-04-06] MEDS ORDERED: POTASSIUM CHLORIDE 20 MEQ CONTROLLED RELEASE TAB PO SCH (11:00)
[2017-04-06 11:59] VITALS: BP 156/67; PULSE 70; RESP 18; TEMP 98.7; O2SAT 94
[2017-04-07] MEDS ORDERED: ASPIRIN EC 81 MG TABEC PO SCH (09:00)
[2017-04-18] MEDS ORDERED: [UNRECOGNIZED DRUG - SUPPLY] (12:40)
[2017-04-18] MEDS ORDERED: COMMODE BEDSIDE1 MI1 (12:42)
[2017-04-23] MEDS ORDERED: ASPI-99 PO (08:37)
[2017-04-23] MEDS ORDERED: ATOR10TA15 PO (08:37)
[2017-04-23] MEDS ORDERED: ALPR.25 PO (08:37)
[2017-04-23] MEDS ORDERED: THERTAB15 PO (08:37)
[2017-04-23] MEDS ORDERED: HYDR-3800 PO (08:37)
[2017-04-23] MEDS ORDERED: ADVA250A INH (08:37)
[2017-04-23] MEDS ORDERED: VITA100064 PO (08:37)
[2017-04-23] MEDS ORDERED: TEGR200T PO (08:37)
[2017-04-23] MEDS ORDERED: PARO20TA2 PO (08:37)
[2017-04-23] MEDS ORDERED: AMLO10TA2 PO (08:37)
[2017-04-23] MEDS ORDERED: PRED20 PO (08:37)
[2017-04-23] MEDS ORDERED: DOXA1TAB34 PO (08:37)
[2017-04-23] MEDS ORDERED: GABA100C4 PO (08:37)
[2017-04-23] MEDS ORDERED: BYST10TA2 PO (08:37)
[2017-04-23] MEDS ORDERED: TRAZ50TA12 PO (08:37)
[2017-04-23] MEDS ORDERED: DOCU1CAP39 PO (08:37)
[2017-04-23] MEDS ORDERED: HYDR-3516 PO (08:37)
[2017-04-23] MEDS ORDERED: POTA20TA5 PO (08:37)
[2017-04-23] MEDS ORDERED: WHEEMIS3 (13:45)
--- NOTE | 2017-05-01 20:37 | HHI.DS ---
Discharge Summary Admission Date April 02, 2017 at 21:49 Discharge Date: April 06, 2017 Admitting Diagnosis FEMUR FRACTURE, UTI (1) Fracture of femoral neck, right Diagnosis: Principal (2) Hyperlipidemia Diagnosis: Secondary (3) Hypothyroidism Diagnosis: Secondary (4) Osteopenia Diagnosis: Secondary (5) Hypertension Diagnosis: Secondary (6) Anxiety Diagnosis: Secondary (7) Depression Diagnosis: Secondary (8) CVA (cerebral infarction) Diagnosis: Secondary (9) UTI (urinary tract infection) Diagnosis: Secondary Procedures April 03, 2017-closed reduction, percutaneous screw fixation of the right femoral neck-Serafin Grewal M.D. Brief History 76-year-old white female with history of previous cerebrovascular accident, hypertension, hyperlipidemia and COPD he was sitting down on the commode at home when she missed the commode and fell to the floor. The patient struck the ground and had sudden onset of severe pain in the right proximal femur area. She was unable to arise from the floor. She had a medic alert system and contacted help. EMS arrived at her home and transported her to this facility for further evaluation and treatment. X-ray revealed right femoral neck fracture. Urinalysis was suspicious for urinary tract infection. The patient would be admitted to a medical surgical bed. Dr. Grewal was consult for orthopedic surgery. The patient would be initiated on IV antibiotic therapy for the urinary tract infection. The patient has an extensive smoking history which continued to the day she was admitted to the hospital. She was placed on aggressive pulmonary toilet including nebulizer treatments, and incentive spirometry. The patient was provided with IV narcotic analgesics as needed for pain relief. Her blood pressure will be monitored closely. She will continue with her usual medications and additional medicine would be provided to cover elevated blood pressure readings. Hospital Course The patient was seen in consultation by Serafin Grewal M.D. for surgery. He felt the patient would be best served with a closed reduction and percutaneous screw fixation of the right femoral neck. The patient was taken to the operating room and underwent successful procedure. In the recovery room, the patient was found to be hypoxemic. Nebulizer treatments were provided. Her oxygen saturations remained low and her supplemental oxygen was increased. It was felt the patient would be best served to be placed in the intensive care unit for close monitoring of her respiratory status. The patient was placed in the intensive care unit. Evaluation ruled out congestive heart failure. It was felt the patient had an exacerbation of her chronic obstructive pulmonary disease. The patient was continued with aggressive pulmonary toilet, nebulizer treatments and her oxygen requirement decreased. Patient was weaned back to a nasal cannula. The patient continued to work with physical therapy. She was restricted to toe touch weightbearing to the right lower extremity. She was out of bed. Her respiratory status continued to improve. The patient's pain was under adequate control. Her blood pressure remains variable but under adequate control for the acute care setting. The patient's urine culture revealed Streptococcus. They have not. The patient completed the appropriate antibiotic treatment. Since the patient lives alone at home, it was determined that she would require a stay in a rehabilitation facility until the time which she was independent enough to return home. The patient was referred to [facility] and was accepted. On the day of discharge, the patient was eating well, bowels are moving and urine output was good. Pain was under reasonable control and blood pressure was under adequate control. The patient would be transferred to [facility]. Medications are listed on the transfer sheet. The undersigned physician would be available as a medical anthropology director for the patient during her stay in rehabilitation. The patient would follow up with orthopedic surgery in 2 weeks. Pt Condition on Discharge: Good Discharge Disposition: Rehab Inpatient Discharge Instructions DIET: Follow Instructions for: Heart Healthy Diet Activities you can perform: Toe Touch Weight Bearing Activities to avoid: Lifting/Bending Olvin Hugo MD May 01, 2017 20:37
== END 2017-04-06 13:27 | DRG 481 ==
LOC: NEPC 17:29 → NEDA 21:49 → N06B 23:31 → N03B 04-03 21:04 → N06A 04-04 18:44
PROVIDERS: ADMIT Family Medicine; ATTEND Family Medicine
PROC: 0QS6XZZ Reposition Right Upper Femur, External Approach (ICD-10-PCS; 2017-04-03)
PROC: 0QH634Z Insertion of Internal Fixation Device into Right Upper Femur, Percutaneous Approach (ICD-10-PCS; principal; 2017-04-03 18:15)
DX: S72.001A Fracture of unspecified part of neck of right femur, initial encounter for closed fracture (principal); N39.0 Urinary tract infection, site not specified; B95.4 Other streptococcus as the cause of diseases classified elsewhere; Z99.81 Dependence on supplemental oxygen; R06.89 Other abnormalities of breathing; W18.12XA Fall from or off toilet with subsequent striking against object, initial encounter; Y92.002 Bathroom of unspecified non-institutional (private) residence as the place of occurrence of the external cause; E86.0 Dehydration; I10 Essential (primary) hypertension; F17.210 Nicotine dependence, cigarettes, uncomplicated; D50.9 Iron deficiency anemia, unspecified; J44.9 Chronic obstructive pulmonary disease, unspecified; Z86.73 Personal history of transient ischemic attack (TIA), and cerebral infarction without residual deficits; E78.2 Mixed hyperlipidemia; E03.9 Hypothyroidism, unspecified; M85.80 Other specified disorders of bone density and structure, unspecified site; H53.40 Unspecified visual field defects; F41.9 Anxiety disorder, unspecified; K58.0 Irritable bowel syndrome with diarrhea; M19.90 Unspecified osteoarthritis, unspecified site; G50.0 Trigeminal neuralgia; E66.3 Overweight; Z68.26 Body mass index [BMI] 26.0-26.9, adult; H91.90 Unspecified hearing loss, unspecified ear; Z79.82 Long term (current) use of aspirin; R00.0 Tachycardia, unspecified; R09.02 Hypoxemia; E87.6 Hypokalemia; Z96.1 Presence of intraocular lens
CPT/HCPCS: 51702; 70450; 71010; 73502; 76000; 80048; 80053; 81001; 82550; 82552; 83735; 84484; 85014; 85018; 85025; 85027; 85610; 85730; 87086; 87641; 93005; 94002; 94150; 94640; 94664; 94667; 94668; 96361; 96365; 96375; C1713; C1769; J0131; J0690; J0696; J1580; J1940; J2270; J2370; J2405; J3010; J7030; J7120; J7512

== ENCOUNTER 2017-05-02 11:37 | Observation (INO) | payer MEDICARE ==
[~2017-05-02] VITALS: Ht 170.2 cm; Wt 73.0 kg
[2017-05-02] VITALS (7 sets, daily range): BP systolic 135–195; BP diastolic 62–81; PULSE 52–71; RESP 16–18; TEMP 97.3–98.5; O2SAT 91–96
[~2017-05-02 11:37] MED LIST changes: +ACET325T PO; -ALPR-138 PO; +ALPR.25 PO; -AMLO10 PO; +AMLO10TA2 PO; +ASPI-99 PO; -ATOR10TA PO; +ATOR10TA15 PO; -CALC-179 PO; +CALCCHW9 CHEW; -CARB200 PO; +COMMODE BEDSIDE1 MI1; +DOCU1CAP39 PO; -DOXA1 PO; +DOXA1TAB34 PO; -FERR324T4 PO; +FERR325T PO; +GABA100C4 PO; +HYDR-3516 PO; +HYDR-3800 PO; -LEVO50TA4 PO; -OMEP20TA PO; -PARO1TAB72 PO; +PARO20TA2 PO; +POTA20TA5 PO; +PRED20 PO; +TEGR200T PO; +THERTAB15 PO; +TRAZ50TA12 PO; -VITA100018 OR; +VITA100064 PO; +WALKER/ADULT/FO1 MIS; +WHEEMIS3; +[UNRECOGNIZED DRUG - SUPPLY]
--- NOTE | 2017-05-02 11:55 | PD ---
HPI Chief Complaint: General Weakness Time Seen by Provider: 11:54 Travel History International Travel<30 days: No Contact w/Intl Traveler<30days: No Traveled to known affect area: No History of Present Illness HPI 76-year-old female came to the emergency room brought by EMS for weakness. Patient says that she was discharged from the hospital not too long ago. She has a home health care nurse who comes to visit her and take care of her and she found her lethargic and called 911. Patient tries to answer my questions appropriately. She does appear somnolent. She doesn't know of well for sure what made her come to the emergency room. Vital signs were otherwise stable. [facility] Past Medical History Narrative Medical List of her past medical, surgical, social and family history was reviewed from the nursing note. Arthritis: No Asthma: No Autoimmune Disease: No Blood Disorders: No Anxiety: No Depression: No Heart Rhythm Problems: No Cancer: No Cardiovascular Problems: Yes High Cholesterol: Yes Chemotherapy: No Chest Pain: No Congestive Heart Failure: No COPD: Yes Cerebrovascular Accident: Yes Diabetes: No Diminished Hearing: Yes Endocrine: Yes GERD: No Genitourinary: Yes Headaches: Yes Hiatal Hernia: No Hypertension: Yes Immune Disorder: No Kidney Stones: No Musculoskeletal: No Neurologic: Yes (CVA) Psychiatric: No Reproductive: No Respiratory: Yes (COPD) Migraines: Yes Myocardial Infarction: No Radiation Therapy: No Renal Failure: No Seizures: No Sickle Cell Disease: No Sleep Apnea: No Thyroid Disease: Yes Ulcer: No PNEUMOCCOCAL Vaccine (Year): 2 ?: Not Menopausal: Yes : 0 Para: 0 Miscarriage: 0 : 0 Past Surgical History Abdominal Surgery: Yes (APPY) Appendectomy: Yes Cardiac Surgery: No Ear Surgery: No Endocrine Surgery: No Eye Surgery: Yes (eye lids) Genitourinary Surgery: No Gynecologic Surgery: Yes (HYSTERECTOMY) Hysterectomy: Yes (complete) Oral Surgery: No Thoracic Surgery: No Tonsillectomy: Yes Social History Alcohol Use: No Tobacco Use: Yes (1 PPD) Substance Use: No Allergies-Medications (Allergen,Severity, Reaction): Coded Allergies: LAUREN Inhibitors (Verified Allergy, Severe, Edema, 05/02/17) PT GETS ANGIOEDEMA FROM LAUREN INHIBITORS Nonsteroidal Anti-Inflammatory Agts (Verified Allergy, Severe, Swelling, ) Comments List of allergies reviewed from the nursing note. Reported Meds & Prescriptions Reported Meds & Active Scripts Active Adult Aspirin EC Low Strength (Aspirin) 81 Mg Tabec 81 Mg PO DAILY Hydrocodone-Acetaminophen 5-325 mg Tab 1 Tab PO Q8HR PRN Advair Diskus Inh (Fluticasone-Salmeterol Inh) 250-50 Mcg/Blist Aer 1 Puff INH BID Rinse mouth after use. Paroxetine (Paroxetine HCl) 20 Mg Tab 20 Mg PO DAILY Doxazosin (Doxazosin Mesylate) 4 Mg Tab 4 Mg PO DAILY Vitamin D (Cholecalciferol) 1,000 Unit Tab 1,000 Units PO DAILY Tegretol (Carbamazepine) 200 Mg Tab 200 Mg PO BID Atorvastatin (Atorvastatin Calcium) 10 Mg Tab 10 Mg PO HS Amlodipine (Amlodipine Besylate) 10 Mg Tab 10 Mg PO DAILY Reported Ferrous Sulfate DR (Ferrous Sulfate) 325 Mg Tabdr 325 Mg PO DAILY Xanax (Alprazolam) 0.25 Mg Tab 0.25 Mg PO Q8H PRN Plavix (Clopidogrel Bisulfate) 75 Mg Tab 75 Mg PO DAILY Ditropan (Oxybutynin Chloride) 5 Mg Tab 5 Mg PO Q12HR Calcium (Calcium Carbonate) 600 Mg Tab 600 Mg PO DAILY Narrative Medication List of her medications reviewed from the nursing note. Review of Systems Except as stated in HPI: all other systems reviewed are Neg Physical Exam Narrative GENERAL: Somnolent, elderly, disheveled, moderate distress SKIN: Focused skin assessment warm/dry. HEAD: Atraumatic. Normocephalic. EYES: Pupils equal and round. No scleral icterus. No injection or drainage. ENT: No nasal bleeding or discharge. Dry mucous membrane, coated tongue NECK: Trachea midline. No JVD. CARDIOVASCULAR: Regular rate and rhythm. No murmur appreciated. RESPIRATORY: No accessory muscle use. Clear to auscultation. Breath sounds equal bilaterally. GASTROINTESTINAL: Abdomen soft, non-tender, nondistended. Hepatic and splenic margins not palpable. MUSCULOSKELETAL: No obvious deformities. No clubbing. No cyanosis. No edema. NEUROLOGICAL: Somnolent. No obvious cranial nerve deficits. Motor grossly within normal limits. Normal speech. PSYCHIATRIC: Appropriate mood and affect; insight and judgment normal. Data Data Last Documented VS Vital Signs Date Time Temp Pulse Resp B/P Pulse Ox O2 Delivery O2 Flow Rate FiO2 05/02/17 12:09 52 16 135/62 95 Nasal Cannula 2 05/02/17 11:50 97.8 Orders Electrocardiogram (05/02/17 12:05) Ammonia (05/02/17 12:05) Complete Blood Count With Diff (05/02/17 12:05) Comprehensive Metabolic Panel (05/02/17 12:05) Creatine Kinase (Cpk) (05/02/17 12:05) Prothrombin Time / Inr (Pt) (05/02/17 12:05) Troponin I (05/02/17 12:05) Thyroid Stimulating Hormone (05/02/17 12:05) Urinalysis - C+S If Indicated (05/02/17 12:05) Lactic Acid Sepsis Protocol (05/02/17 12:05) Blood Culture (05/02/17 12:05) Chest, Single Ap (05/02/17 12:05) Ct Brain W/O Iv Contrast(Rout) (05/02/17 12:05) Blood Glucose (05/02/17 12:05) Ecg Monitoring (05/02/17 12:05) Iv Access Insert/Monitor (05/02/17 12:05) Oximetry (05/02/17 12:05) Sodium Chloride 0.9% Flush (Ns Flush) (05/02/17 12:15) Sodium Chlor 0.9% 1000 Ml Inj (Ns 1000 M (05/02/17 12:05) Urine Culture (05/02/17 13:10) Ceftriaxone Inj (Rocephin Inj) (05/02/17 14:30) Admit Order (Ed Use Only) (05/02/17 14:25) Labs Laboratory Tests Test 05/02/17 05/02/17 05/02/17 05/02/17 03:51 12:00 12:20 13:10 Carbamazepine (Tegretol) Level 8.2 MCG/ML Prothrombin Time 11.0 SEC Prothromb Time International 1.0 RATIO Ratio Sodium Level 142 MEQ/L Potassium Level 3.7 MEQ/L Chloride Level 108 MEQ/L Carbon Dioxide Level 24.2 MEQ/L Anion Gap 10 MEQ/L Blood Urea Nitrogen 13 MG/DL Creatinine 0.65 MG/DL Estimat Glomerular Filtration 89 ML/MIN Rate Random Glucose 105 MG/DL Calcium Level 8.2 MG/DL Total Bilirubin 0.2 MG/DL Aspartate Amino Transf 21 U/L (AST/SGOT) Alanine Aminotransferase 25 U/L (ALT/SGPT) Alkaline Phosphatase 105 U/L Total Creatine Kinase 147 U/L Troponin I LESS THAN 0.02 NG/ML Total Protein 5.9 GM/DL Albumin 2.7 GM/DL Thyroid Stimulating Hormone 1.340 uIU/ML 3rd Gen White Blood Count 5.7 TH/MM3 Red Blood Count 3.70 MIL/MM3 Hemoglobin 11.7 GM/DL Hematocrit 35.8 % Mean Corpuscular Volume 96.6 FL Mean Corpuscular Hemoglobin 31.7 PG Mean Corpuscular Hemoglobin 32.8 % Concent Red Cell Distribution Width 15.0 % Platelet Count 243 TH/MM3 Mean Platelet Volume 8.8 FL Neutrophils (%) (Auto) 73.3 % Lymphocytes (%) (Auto) 14.2 % Monocytes (%) (Auto) 8.9 % Eosinophils (%) (Auto) 2.8 % Basophils (%) (Auto) 0.8 % Neutrophils # (Auto) 4.2 TH/MM3 Lymphocytes # (Auto) 0.8 TH/MM3 Monocytes # (Auto) 0.5 TH/MM3 Eosinophils # (Auto) 0.2 TH/MM3 Basophils # (Auto) 0.0 TH/MM3 CBC Comment DIFF FINAL Differential Comment Lactic Acid Level 1.2 mmol/L Ammonia 26 MCMOL/L Urine Color YELLOW Urine Turbidity HAZY Urine pH 6.5 Urine Specific Paron 1.017 Urine Protein TRACE mg/dL Urine Glucose (UA) NEG mg/dL Urine Ketones NEG mg/dL Urine Occult Blood LARGE Urine Nitrite POS Urine Bilirubin NEG Urine Urobilinogen LESS THAN 2.0 MG/DL Urine Leukocyte Esterase MOD Urine RBC 45 /hpf Urine WBC 19 /hpf Urine Squamous Epithelial 1 /hpf Cells Urine Transitional Epithelial <1 /hpf Cells Urine Mucus FEW /lpf Microscopic Urinalysis Comment CATH-CULTURE IND MDM Medical Decision Making Medical Screen Exam Complete: Yes Emergency Medical Condition: Yes Medical Record Reviewed: Yes Interpretation(s) Twelve-lead EKG was reviewed by me. Normal sinus rhythm, normal axis, nonspecific ST-T wave changes. Heart rate of 60 bpm. Differential Diagnosis Metabolic encephalopathy, sepsis, UTI, pneumonia, electrolyte abnormality Narrative Course 12:55 PM patient is getting IV fluid boluses. Awaiting for the blood test result and the CAT scan to be done and resulted. 2:18 PM blood test results are within acceptable limits. However UA is strongly positive for UTI. I've given her dose of IV Rocephin. CT scan is within normal limit. Distal no family member in the room. Her. Awaiting for the residents to call back. Procedures EKG Prior to Arrival: Yes Diagnosis Primary Impression: Altered mental status Qualified Code: R40.0 - Somnolence Additional Impression: UTI (urinary tract infection) Qualified Code: N39.0 - Urinary tract infection without hematuria, site unspecified Admitting Information Admitting Physician Requests: Admit Scripts Levofloxacin 250 Mg [id number] Mg PO DAILY #5 TAB Ref 0 Prov:Olvin Hugo MD 05/03/17 Nunu Perkins MD May 02, 2017 11:55 Nunu Perkins MD May 02, 2017 11:55
[2017-05-02] MEDS ORDERED: SODIUM CHLOR 0.9% 1000 ML INJ 1,000 ML IV SCH (12:05)
[2017-05-02] MEDS ORDERED: SODIUM CHLORIDE 0.9% FLUSH 5 ML FLUSH IV FLUSH PRN (12:15)
[2017-05-02 12:50] LABS: AUTOMATED NEUTROPHIL # 4.2 TH/MM3 (1.8-7.7); BASOPHIL % 0.8 % (0.0-2.0); EOSINOPHIL # 0.2 TH/MM3 (0-0.4); EOSINOPHIL % 2.8 % (0.0-4.0); HEMATOCRIT 35.8 % (35.0-46.0); HEMO FLAGS DIFF FINAL; LYMPH % 14.2 % (9.0-44.0); LYMPHOCYTE # 0.8 TH/MM3 (1.0-4.8); MEAN CELL VOLUME 96.6 FL (80.0-100.0); MEAN CORPUSCULAR HEMOGLOBIN 31.7 PG (27.0-34.0); MEAN CORPUSCULAR HGB CONC 32.8 % (32.0-36.0); MONO % 8.9 % (0.0-8.0); NEUT % 73.3 % (16.0-70.0); PLATELET COUNT 243 TH/MM3 (150-450); WHITE BLOOD COUNT 5.7 TH/MM3 (4.0-11.0)
--- NOTE | 2017-05-02 13:01 | RADRPT ---
EXAM DATE/TIME: 05/02/2017 12:30 [facility] COMPARISON: SHOULDER RIGHT LTD (2VWS), April 15, 2017, 10:53. INDICATIONS : Shortness of breath. MEDICAL HISTORY : None. SURGICAL HISTORY : None. ENCOUNTER: Initial ACUITY: 1 day PAIN SCORE: 0/10 LOCATION: Bilateral chest FINDINGS: There are chronic appearing interstitial changes. The heart is normal in size. No pleural effusion is seen. No pneumothorax is identified. The visualized bony structures are grossly intact. CONCLUSION: 1. Chronic interstitial changes. No acute abnormality. Lul Pierce MD on May 02, 2017 at 12:58 Board Certified Radiologist. This report was verified electronically.
[2017-05-02] MEDS ORDERED: PLAV75TA29 PO (13:07)
[2017-05-02] MEDS ORDERED: CALC600T25 PO (13:07)
[2017-05-02] MEDS ORDERED: OXYB5TAB10 PO (13:07)
[2017-05-02] MEDS ORDERED: BYST10TA2 PO (13:07)
[2017-05-02] MEDS ORDERED: ALPR.25 PO (13:07)
[2017-05-02] MEDS ORDERED: FERR325T2 PO (13:08)
[2017-05-02 13:17] LABS: ANION GAP 10 MEQ/L (5-15); BICARBONATE 24.2 MEQ/L (21.0-32.0); BLOOD UREA NITROGEN 13 MG/DL (7-18); CHLORIDE 108 MEQ/L (98-107); GLOMERULAR FILTRATION RATE 89 ML/MIN (>89); POTASSIUM 3.7 MEQ/L (3.5-5.1); SODIUM (NA) 142 MEQ/L (136-145)
[2017-05-02 13:19] LABS: ALT (GPT) 25 U/L (10-53); AST (GOT) 21 U/L (15-37)
[2017-05-02 13:28] LABS: ALKALINE PHOSPHATASE 105 U/L (45-117); CREATINE KINASE 147 U/L (26-192); TOTAL BILIRUBIN ADULT 0.2 MG/DL (0.2-1.0)
[2017-05-02 13:55] LABS: BLOOD, URINE LARGE (NEG); GLUCOSE,URINE NEG (NEG); KETONE, URINE NEG (NEG); MUCUS URINE FEW /lpf (OCC); PH, URINE 6.5 (5.0-8.5); SQUAMOUS EPITHELIAL CELL URINE 1 /hpf (0-5); TRANSITIONAL EPI CELLS, URINE <1 /hpf; URINE COLOR YELLOW (YELLW/STRAW)
--- NOTE | 2017-05-02 13:57 | RADRPT ---
EXAM DATE/TIME: 05/02/2017 13:25 [facility] COMPARISON: CT BRAIN W/O CONTRAST, April 02, 2017, 20:35. INDICATIONS : Altered mentsl status. Prior history of CVA RADIATION DOSE: 42.55 CTDIvol (mGy) MEDICAL HISTORY : Cardiovascular disease. Hypertension. Chronic obstructive pulmonary disease.Lethargy, neck pain down right arm. SURGICAL HISTORY : None. ENCOUNTER: Initial ACUITY: 1 day PAIN SCALE: 0/10 LOCATION: cranial TECHNIQUE: Multiple contiguous axial images were obtained of the head. Using automated exposure control and adj ustment of the mA and/or kV according to patient size, radiation dose was kept as low as reasonably a chievable to obtain optimal diagnostic quality images. FINDINGS: Central atrophy with ventriculomegaly and generalized cerebral white matter hypodensity is again note d and has not significantly changed. There is no evidence of acute infarct, hemorrhage, mass or edema. No intra-axial abnormalities. CONCLUSION: Chronic cerebral or matter disease with central atrophy and ventricular enlargement. No change since the previous study. No evidence of acute infarct, hemorrhage, mass or edema. Jamir Clifton MD on May 02, 2017 at 13:53 Board Certified Radiologist. This report was verified electronically.
[2017-05-02 14:04] LABS: NITRITE,URINE POS (NEG)
[2017-05-02 14:05] LABS: COMMENT (UR) CATH-CULTURE IND; CULTURE IF INDICATED CATH CULTURE IND
[2017-05-02] MEDS ORDERED: cefTRIAXone INJ 1,000 MG in SODIUM CHLORIDE 0.9% INJ 100 ML IV ONE (14:30)
[2017-05-02] MEDS ORDERED: ACETAMINOPHEN/HYDROcodone 325 MG/5 MG TAB PO PRN (15:15)
[2017-05-02] MEDS ORDERED: DOCUSATE SODIUM 100 MG CAP PO PRN (15:15)
[2017-05-02] MEDS: SODIUM CHLOR 0.9% 1000 ML INJ 1,000 ML IV SCH (15:51)
[2017-05-02] MEDS ORDERED: cefTRIAXone INJ 1,000 MG in SODIUM CHLORIDE 0.9% INJ 100 ML IV SCH (17:00)
[2017-05-02] MEDS: ALPRAZolam 0.25 MG TAB PO PRN (19:10)
--- NOTE | 2017-05-02 20:41 | MH ---
cc: FREDY LY MD DATE OF ADMISSION 05/02/2017 ADMISSION DIAGNOSIS Generalized weakness, Urinary tract infection. HISTORY OF PRESENT ILLNESS This 76-year-old white female well-known to undersigned physician was recently discharged from the [facility] following a stay for a right femoral neck fracture for which she underwent a closed reduction with placement of a fixation screw. The patient was discharged home approximately two weeks prior to this admission. She was doing well at home. She had 24-hour caregivers. The patient was working with home health physical and occupational therapy. On the day prior to admission, the home health nurse came to see the patient and she seemed to be weaker than usual. She was reported that she was not eating and drinking very much. The undersigned physician was notified and laboratory studies and urinalysis were ordered. On the day of admission, the home health nurse came to see the patient who was in bed and was refusing to get up out of bed. She was complaining of weakness. She had not eaten or drank anything that morning. The home health nurse was very concerned about the patient being less alert than usual. At that time, instructions were given for the home health nurse to contact EMS and the patient was transferred to this facility for further evaluation and treatment. The patient denies any headache, any visual changes, nausea, vomiting, diarrhea. She has not had a bowel movement in the last two days. She did take a laxative yesterday. She has had no fever, chills, night sweats. She denies any dysuria, but she does have urinary incontinence which is a chronic problem. She denies any chest pain, palpitations. She reports her appetite is fair, but this is not unusual for the patient. She states that she is drinking fluids, but she admits that she does not drink a lot of clear liquids each day. PAST MEDICAL HISTORY 1. Kidney stones 2. Hypothyroidism, 3. COPD 4. Osteopenia 5. Lumbar disk disease with history of radiculitis. She underwent epidural steroid injections in 2006. 6. History of bilateral retinal artery branch occlusions with residual chronic left visual deficit. 7. History of anxiety 8. Irritable bowel syndrome 9. Allergic rhinitis, 10. Osteoarthritis, 11. Hyperlipidemia, 12. Trigeminal neuralgia. 13. Status post a right pontine lacunar CVA in 2010 with an extension of the CVA in 2012. 14. Hypertension 15. The above-mentioned right femoral neck fracture earlier this year. 16. Status post a face lift in 2008 17. Status post total abdominal hysterectomy with bilateral salpingo-oophorectomy in 1971. 18. History of appendectomy 19. Cataract removal with lens implant on the right. MEDICATIONS Current 1. Carbamazepine 100 mg twice daily. 2. Amlodipine 10 mg daily. 3. Alprazolam 0.25 mg one half to 1 tablet three times a day as needed for anxiety. 4. Atorvastatin 10 mg daily. 5. Doxazosin 4 mg at bedtime. 6. Oxybutynin 5 mg twice daily. 7. Advair Diskus 250/50 micrograms 1 inhalation twice daily. 8. Plavix 75 mg daily. 9. Paroxetine 20 mg daily. 10. Ferrous sulfate 325 mg daily. 11. Calcium 600 mg 1 tablet daily. ALLERGIES LAUREN INHIBITORS - CAUSES ANGIOEDEMA FAMILY HISTORY Positive for father dying in his 30s of colon cancer. Mother in her 90s with history of hypertension, hyperlipidemia, rheumatoid arthritis, hypothyroidism, diabetes and rheumatic heart disease. SOCIAL HISTORY She is . She smokes one to two packs of cigarettes a day. She has done so for over 50 years. She currently lives alone but has 24-hour caregivers. She is retired. She does not consume any alcohol. REVIEW OF SYSTEMS Negative except as outlined above. PHYSICAL EXAMINATION VITAL SIGNS: Upon arrival to the emergency department the patient's blood pressure was 135/62 with a heart rate of 56, respirations 16, temperature 97.8 degrees Fahrenheit. Oxygen saturation on 2 liters per minute per nasal cannula was 95%. GENERAL: This is an overweight elderly white female lying in bed in no acute physical distress but tearful. HEENT: Pupils equal, round, react to light. Extraocular movements are intact. Sclerae anicteric and nares patent. Mouth and throat reveal moist mucous membranes. No erythema, exudates. NECK: Supple without lymphadenopathy, JVD, bruits or thyromegaly. CARDIOVASCULAR: Regular rate and rhythm without murmurs, rubs or gallops. LUNGS: Mild to moderate reduced air exchange but no wheezes, rhonchi or rales. ABDOMEN: Soft, nontender, nondistended. Bowel sounds present, no mass is palpable, no hepatosplenomegaly. & Rectal: Deferred. EXTREMITIES: Lower extremities Had no appreciable edema, 2+ distal pulses. No calf tenderness. No Samara sign. NEUROLOGIC: The patient is awake, alert, oriented x3. Speech intact. Cranial nerves intact. No lateralizing deficits. The mood is anxious and the patient is tearful. Affect appropriate. No delusions or hallucinations. LABORATORY DATA Her white blood cell count 5.7, hemoglobin 11.7, hematocrit 35.8, platelet count 243,000. White blood count differential showed 73.3 neutrophils, 14.2 lymphocytes, 8.9 monocytes. INR 1.0. Comprehensive metabolic profile was significant for a calcium of 8.2, albumin low at 2.7, total protein low at 5.9. Troponin was less than 0.02 and CK was 147, ammonia level was normal at 26. Lactic acid was 1.2. Carbamazepine level 8.2. Urinalysis revealed specific gravity 1.017, pH 6.5, large amount of occult blood, positive for nitrites and moderate leukocyte esterase, 45 RBCs, 19 WBCs per high-power field, culture indicated blood and is pending. Blood cultures are pending. IMAGING STUDIES The chest x-ray revealed chronic interstitial changes but no acute processes. CT scan of the head revealed chronic cerebral or white matter disease with central atrophy and ventricular enlargement. No change since prior study. No new infarct, hemorrhage or mass or edema noted. IMPRESSION AND PLAN 1. This 76-year white female presents with generalized weakness and probable urinary tract infection based on urinalysis. Culture is pending at this time. The patient will be placed in observation, will be given IV fluids of normal saline overnight. We will encourage oral intake. She has already eaten dinner this evening and did fairly well. Her oral fluid intake has also improved. She has received IV Rocephin. We will transition her in the morning to p.o. antibiotics and if she is eating well and mental status is back to baseline, she will be discharged home with close outpatient followup. We will follow up urine culture and adjust antibiotic coverage as needed. 2. Hypertension. The patient has a history of very labile hypertension in the hospital due to her anxiety about being in the hospital. We will provide her usual medications and an order for clonidine to be given as needed for an elevated systolic blood pressure. 3. History of CVA. Continue with Plavix and aspirin as previously prescribed 4. Hyperlipidemia. Continue with atorvastatin. 5. History of facial trigeminal neuralgia. Continue with carbamazepine. The patient currently asymptomatic. 6. History of anxiety. The patient is extremely anxious about being in the hospital. She is tearful, stating that she does not feel she needs to be here and she wants to go home. After a discussion with the patient, she agrees stay overnight but would like to go home in the morning. I have discussed with her that if she is eating and drinking well and feeling stronger that we could discharge her home with close outpatient follow up. She will continue with paroxetine and provide her with alprazolam as needed. She was given one alprazolam now. We will make further recommendations with regard to the patient's treatment pending the patient's response to the initial therapeutic interventions. MD VALERIA Barrios/ /7:20 PM /8:08 PM
[2017-05-02] MEDS ORDERED: ATORVASTATIN 10 MG TAB PO SCH (21:00)
[2017-05-02] MEDS: BUDESONIDE-FORMOTEROL 160/4.5 MCG INHALER INH SCH (21:00)
[2017-05-02] MEDS: OXYBUTYNIN CHLORIDE 5 MG TAB PO SCH (21:38)
[2017-05-02] MEDS: carBAMazepine 200 MG TAB PO SCH (21:38)
[2017-05-02] MEDS: cloNIDine HCL 0.1 MG TAB PO PRN (21:50)
[2017-05-03] MEDS: SODIUM CHLOR 0.9% 1000 ML INJ 1,000 ML IV SCH ×2 (01:15→07:51)
[2017-05-03 03:33] VITALS: BP 195/85; PULSE 68; RESP 18; TEMP 97.6; O2SAT 95
[2017-05-03] MEDS: cloNIDine HCL 0.1 MG TAB PO PRN ×2 (03:54→07:47)
[2017-05-03] MEDS: ALPRAZolam 0.25 MG TAB PO PRN (03:54)
[2017-05-03 07:22] VITALS: BP 187/81; PULSE 60; RESP 18; TEMP 98; O2SAT 94
[2017-05-03] MEDS: BUDESONIDE-FORMOTEROL 160/4.5 MCG INHALER INH SCH (07:47)
[2017-05-03] MEDS: carBAMazepine 200 MG TAB PO SCH (07:47)
[2017-05-03] MEDS: OXYBUTYNIN CHLORIDE 5 MG TAB PO SCH (07:49)
[2017-05-03 08:00] VITALS: PULSE 57
[2017-05-03] MEDS ORDERED: DOXAZOSIN MESYLATE 4 MG TAB PO SCH (09:00)
[2017-05-03] MEDS ORDERED: CLOPIDOGREL 75 MG TAB PO SCH (09:00)
[2017-05-03] MEDS ORDERED: ASPIRIN EC 81 MG TABEC PO SCH (09:00)
[2017-05-03] MEDS ORDERED: PARoxetine HCL 20 MG TAB PO SCH (09:00)
[2017-05-03] MEDS ORDERED: FERROUS SULFATE 325 MG (65 MG ELEMENTAL IRON) TAB PO SCH (09:00)
[2017-05-03] MEDS ORDERED: CALCIUM CARBONATE 1.25 GM (CA 500 MG) TAB PO SCH (09:00)
[2017-05-03] MEDS ORDERED: CHOLECALCIFEROL (VIT D3) 1000 UNIT TAB PO SCH (09:00)
[2017-05-03 09:13] VITALS: O2SAT 92
[2017-05-03 09:33] VITALS: BP 144/73
--- NOTE | 2017-05-03 10:05 | HHI.PR ---
Subjective Remarks BP was elevated overnight but she did not sleep well and wants to go home. BP better this am. PO intake fair. Does not like the food. Denies pain. No chest pain or SOB Current Medications Medications (Trade) Dose Ordered Sig/Estelita Route Start Time Stop Time Status Last Admin IV Flush 2 ml 2 ml UNSCH PRN IV FLUSH 05/02/17 12:15 (NS 1000 ml Inj) 1,000 ml @ 100 mls/hr Q10H IV 05/02/17 15:15 05/03/17 07:51 (Xanax) 0.25 mg Q8H PRN PO 05/02/17 15:15 05/03/17 03:54 (Norvasc) 10 mg DAILY PO 05/03/17 09:00 05/03/17 07:49 (Ecotrin Ec) 81 mg DAILY PO 05/03/17 09:00 05/03/17 07:48 (Lipitor) 10 mg HS PO 05/02/17 21:00 05/02/17 21:38 (TEGretol) 200 mg BID PO 05/02/17 21:00 05/03/17 07:47 (Vitamin D3) 1,000 units DAILY PO 05/03/17 09:00 05/03/17 07:49 (Plavix) 75 mg DAILY PO 05/03/17 09:00 05/03/17 07:48 (Colace) 100 mg BID PRN PO 05/02/17 15:15 (Cardura) 4 mg DAILY PO 05/03/17 09:00 05/03/17 07:50 (Joseph 5-325 Mg) 1 tab Q8HR PRN PO 05/02/17 15:15 (Ditropan) 5 mg Q12HR PO 05/02/17 21:00 05/03/17 07:49 (Paxil) 20 mg DAILY PO 05/03/17 09:00 05/03/17 07:49 (Oscal) 500 mg DAILY PO 05/03/17 09:00 05/03/17 07:49 (Ferrous Sulfate) 325 mg DAILY PO 05/03/17 09:00 05/03/17 07:49 Budesonide/ Formoterol Fumarate 2 puff 2 puff BID INH 05/02/17 21:00 05/03/17 07:47 (Rocephin Inj/NS Inj) 100 ml @ 200 mls/hr Q24H IV 05/02/17 17:00 05/02/17 16:51 (Catapres) 0.1 mg Q8H PRN PO 05/02/17 19:30 05/03/17 07:47 Objective Vital Signs Date Time Temp Pulse Resp B/P Pulse Ox O2 Delivery O2 Flow Rate FiO2 05/03/17 09:33 144/73 05/03/17 09:13 92 05/03/17 07:22 98.0 60 18 187/81 94 05/03/17 03:33 97.6 68 18 195/85 95 05/02/17 23:36 98.5 71 18 192/74 93 05/02/17 21:06 94 05/02/17 20:07 98.2 67 18 195/81 91 181/79 05/02/17 17:47 150/78 05/02/17 15:53 97.3 60 18 192/79 96 05/02/17 12:09 52 16 135/62 95 Nasal Cannula 2 05/02/17 11:50 97.8 56 16 135/62 95 I/O 05/02/17 05/02/17 05/02/17 05/03/17 05/03/17 05/03/17 07:00 15:00 23:00 07:00 15:00 23:00 Intake Total 820 ml Output Total 500 ml Balance 320 ml Intake Oral 620 ml IV Total 200 ml Output Urine Total 500 ml CV: RRR Lungs: CTA Abd: Soft, mild distention, NT, +BS Neuro: nonfocal. Mental status at baseline Result Diagram: 05/02/17 1200 05/02/17 1200 Assessment and Plan Problem List: (1) UTI (urinary tract infection) Status: Acute Plan: Will discharge patient home with Rx for Levofloxacin 250 mg daily for 5 days. Will follow-up urine culture and adjust antibiotic coverage as needed (2) Hypertension Status: Chronic Plan: BP always higher in hospital. Discharge home on usual meds. Home Health will monitor BP at home (3) Anxiety Status: Chronic Plan: Cont Paroxetine and Xanax prn (4) Personal history of transient ischemic attack (TIA), and cerebral infarction without residual deficits Status: Chronic Plan: Continue ASA and Plavix (5) Iron deficiency anemia Status: Chronic Plan: Patient has refused GI work-up. Cont FESO4 (6) COPD (chronic obstructive pulmonary disease) Status: Chronic Plan: Cont Advair. She is aware of the risk of progression of COPD with continued smoking Discharge Planning Home today with Home health Problem Qualifiers (1) UTI (urinary tract infection): Qualified Code: N39.0 - Urinary tract infection without hematuria, site unspecified (2) Hypertension: Qualified Code: I10 - Essential hypertension (3) Iron deficiency anemia: Qualified Code: D50.8 - Other iron deficiency anemia (4) COPD (chronic obstructive pulmonary disease): Qualified Code: J43.9 - Pulmonary emphysema, unspecified emphysema type Olvin Hugo MD May 03, 2017 10:05
[2017-05-03] MEDS ORDERED: LEVO250T7 PO (10:12)
--- NOTE | 2017-05-03 22:53 | EKG ---
Date Performed: 05/02/2017 Time Performed: 12:40:30 PTAGE: 76 years EKG: Sinus rhythm NORMAL ECG PREVIOUS TRACING : 04/02/2017 20.16 DOCTOR: Armida العراقي Interpretating Date/Time 05/03/2017 22:53:17
== END 2017-05-03 12:22 | disposition home or self-care (01) ==
LOC: NEPE 11:37 → NEDA 14:28 → NEPGCP 15:51
PROVIDERS: ADMIT Family Medicine; ATTEND Family Medicine
DX: N39.0 Urinary tract infection, site not specified (principal); I10 Essential (primary) hypertension; D50.9 Iron deficiency anemia, unspecified; J44.9 Chronic obstructive pulmonary disease, unspecified; E78.5 Hyperlipidemia, unspecified; G50.0 Trigeminal neuralgia; F41.9 Anxiety disorder, unspecified; H91.90 Unspecified hearing loss, unspecified ear; F17.210 Nicotine dependence, cigarettes, uncomplicated; E78.00 Pure hypercholesterolemia, unspecified; M85.80 Other specified disorders of bone density and structure, unspecified site; E03.9 Hypothyroidism, unspecified; M19.90 Unspecified osteoarthritis, unspecified site; K58.9 Irritable bowel syndrome, unspecified; Z86.73 Personal history of transient ischemic attack (TIA), and cerebral infarction without residual deficits; Z79.02 Long term (current) use of antithrombotics/antiplatelets; Z88.8 Allergy status to other drugs, medicaments and biological substances
CPT/HCPCS: 70450; 71010; 80053; 80156; 81001; 82140; 82550; 83605; 84443; 84484; 85025; 85610; 87040; 87077; 87086; 87186; 87205; 93005; 96361; 96365; 96366; 99285; G0378; J0696; J7030

== ENCOUNTER 2018-02-21 12:28 | Observation (INO) | payer MEDICARE ==
[~2018-02-21] VITALS: Ht 170.2 cm; Wt 62.9 kg
[2018-02-21] VITALS (9 sets, daily range): BP systolic 144–176; BP diastolic 65–79; PULSE 82–95; RESP 14–22; TEMP 96.5–98.9; O2SAT 92–98
[~2018-02-21 12:28] MED LIST changes: -ACET325T PO; -ASPI-99 PO; +ASPI1TAB56 PO; -BYST10TA2 PO; +CALC600T5 PO; -CALCCHW9 CHEW; -COMMODE BEDSIDE1 MI1; -DOCU1CAP39 PO; -FERR325T PO; +FERR325T2 PO; -GABA100C4 PO; -HYDR-3800 PO; +LEVO250T7 PO; +OXYB5TAB8 PO; +PLAV75TA29 PO; -POTA20TA5 PO; -PRED20 PO; -THERTAB15 PO; -TRAZ50TA12 PO; -WALKER/ADULT/FO1 MIS; -WHEEMIS3; -[UNRECOGNIZED DRUG - SUPPLY]
[2018-02-21] MEDS ORDERED: SODIUM CHLORIDE FLUSH PRN IV FLUSH (13:00)
[2018-02-21 13:54] LABS: CHLORIDE 109 MEQ/L (98-107); SODIUM (NA) 145 MEQ/L (136-145)
[2018-02-21 13:57] LABS: CALCIUM 8.1 MG/DL (8.5-10.1)
[2018-02-21 13:58] LABS: BICARBONATE 29.8 MEQ/L (21.0-32.0); BLOOD UREA NITROGEN 10 MG/DL (7-18); GLUCOSE,RANDOM 110 MG/DL (74-106)
[2018-02-21 14:01] LABS: ALT (GPT) 17 U/L (10-53); AST (GOT) 11 U/L (15-37); CREATININE 0.58 MG/DL (0.50-1.00); GLOMERULAR FILTRATION RATE 101 ML/MIN (>89)
[2018-02-21 14:02] LABS: TOTAL BILIRUBIN ADULT 0.2 MG/DL (0.2-1.0)
[2018-02-21 14:03] LABS: TOTAL PROTEIN 6.7 GM/DL (6.4-8.2)
[2018-02-21 14:04] LABS: ALKALINE PHOSPHATASE 104 U/L (45-117)
[2018-02-21 14:41] LABS: HEMATOCRIT 16.2 % (35.0-46.0); MEAN CELL VOLUME 57.4 FL (80.0-100.0); MEAN CORPUSCULAR HEMOGLOBIN 16.6 PG (27.0-34.0); MEAN PLATELET VOLUME 8.1 FL (7.0-11.0); PLATELET COUNT 345 TH/MM3 (150-450); RED BLOOD COUNT 2.82 MIL/MM3 (4.00-5.30); RED CELL DISTRIBUTION WIDTH 21.3 % (11.6-17.2); WHITE BLOOD COUNT 4.2 TH/MM3 (4.0-11.0)
[2018-02-21 14:46] LABS: HEMOGLOBIN 4.7 GM/DL (11.6-15.3)
[2018-02-21 15:11] LABS: LYMPHOCYTES 20 % (9-44); MONOCYTES 6 % (0-8); POLYS (SEG NEUTROPHILS) 72 % (16-70)
[2018-02-21 15:12] LABS: KERATOCYTES 1+ (NORMAL); OVALOCYTES 2+ (NORMAL); TARGET CELLS 1+ (NORMAL); TEARDROP RBCS 1+ (NORMAL)
[2018-02-21 15:13] LABS: RETIC # 51.8 MIL/L (20.0-150.0); RETIC % 1.8 % (0.4-3.0)
[2018-02-21] MEDS ORDERED: DOXAZOSIN MESYLATE 4 MG TAB PO SCH ×2 (15:15→21:00)
[2018-02-21 15:17] LABS: IRON (FE) 16 MCG/DL (50-170)
[2018-02-21] MEDS: ALPRAZolam 0.25 MG TAB PO PRN (16:34)
[2018-02-21] MEDS: RESP: ALBUTEROL 2.5 MG/IPRATROPIUM 0.5 MG NEB (SCH) NEB (20:25)
[2018-02-21] MEDS: carBAMazepine 200 MG TAB PO SCH ×2 (20:56→20:57)
[2018-02-21] MEDS: ATORVASTATIN 10 MG TAB PO SCH (20:57)
[2018-02-21] MEDS: SODIUM CHLORIDE FLUSH BID IV FLUSH SCH (20:57)
[2018-02-21] MEDS: DOCUSATE SODIUM 100 MG CAP PO SCH (20:57)
[2018-02-21] MEDS: FERROUS SULFATE 325 MG (65 MG ELEMENTAL IRON) TAB PO SCH (20:57)
[2018-02-21] MEDS: cloNIDine HCL 0.1 MG TAB PO PRN (23:10)
[2018-02-21] MEDS: BUDESONIDE-FORMOTEROL 160/4.5 MCG INHALER INH SCH (23:10)
[2018-02-22] VITALS (19 sets, daily range): BP systolic 158–190; BP diastolic 64–86; PULSE 65–98; RESP 18–20; TEMP 95.3–98.3; O2SAT 90–98
[2018-02-22 06:54] LABS: AUTOMATED NEUTROPHIL # 3.7 TH/MM3 (1.8-7.7); BASOPHIL % 0.7 % (0.0-2.0); EOSINOPHIL # 0.2 TH/MM3 (0-0.4); EOSINOPHIL % 2.7 % (0.0-4.0); HEMATOCRIT 24.1 % (35.0-46.0); HEMOGLOBIN 7.6 GM/DL (11.6-15.3); LYMPH % 19.2 % (9.0-44.0); LYMPHOCYTE # 1.1 TH/MM3 (1.0-4.8); MEAN CELL VOLUME 68.5 FL (80.0-100.0); MEAN CORPUSCULAR HEMOGLOBIN 21.5 PG (27.0-34.0); MEAN CORPUSCULAR HGB CONC 31.3 % (32.0-36.0); MEAN PLATELET VOLUME 7.5 FL (7.0-11.0); MONO % 11.1 % (0.0-8.0); MONOCYTE # 0.6 TH/MM3 (0-0.9); NEUT % 66.3 % (16.0-70.0); PLATELET COUNT 226 TH/MM3 (150-450); RED BLOOD COUNT 3.52 MIL/MM3 (4.00-5.30); RED CELL DISTRIBUTION WIDTH 30.7 % (11.6-17.2); WHITE BLOOD COUNT 5.6 TH/MM3 (4.0-11.0)
[2018-02-22 07:24] LABS: BICARBONATE 28.9 MEQ/L (21.0-32.0)
[2018-02-22 07:27] LABS: CREATININE 0.56 MG/DL (0.50-1.00)
[2018-02-22] MEDS: RESP: ALBUTEROL 2.5 MG/IPRATROPIUM 0.5 MG NEB (SCH) NEB ×3 (07:47→19:46)
[2018-02-22 07:49] LABS: KERATOCYTES OCC (NORMAL); OVALOCYTES 1+ (NORMAL); TARGET CELLS 1+ (NORMAL)
[2018-02-22] MEDS: BUDESONIDE-FORMOTEROL 160/4.5 MCG INHALER INH SCH ×2 (09:01→20:29)
[2018-02-22] MEDS: FERROUS SULFATE 325 MG (65 MG ELEMENTAL IRON) TAB PO SCH ×2 (09:02→20:31)
[2018-02-22] MEDS: CHOLECALCIFEROL (VIT D3) 1000 UNIT TAB PO SCH (09:03)
[2018-02-22] MEDS: PARoxetine HCL 20 MG TAB PO SCH (09:03)
[2018-02-22] MEDS: DOCUSATE SODIUM 100 MG CAP PO SCH ×2 (09:04→20:33)
[2018-02-22] MEDS: CALCIUM CARBONATE 1.25 GM (CA 500 MG) TAB PO SCH (09:04)
[2018-02-22] MEDS: carBAMazepine 200 MG TAB PO SCH ×3 (09:04→20:32)
[2018-02-22] MEDS: SODIUM CHLORIDE FLUSH BID IV FLUSH SCH ×2 (09:07→20:34)
[2018-02-22] MEDS: ASPIRIN EC 81 MG TABEC PO SCH (09:40)
[2018-02-22] MEDS: CLOPIDOGREL 75 MG TAB PO SCH (09:40)
--- NOTE | 2018-02-22 09:50 | HHI.PR ---
Subjective Remarks Received 2 units of packed red blood cells overnight. Hemoglobin now 7.4. Patient is currently receiving oxygen at 2 L/min per nasal cannula. She has a long history of COPD and continues to smoke at home. She uses Advair at home but has refused any oxygen. She is receiving nebulizer treatments. She states that she has been coughing more not producing any sputum. Blood pressure is higher. Patient missed dose of amlodipine yesterday as she did not take it prior to admission. She received her amlodipine this morning. We will follow blood pressure. Has clonidine to has clonidine ordered for elevated blood pressure readings. Denies any chest pain or palpitations. Appetite is good. Urine output is good. Current Medications Medications (Trade) Dose Ordered Sig/Estelita Route Start Time Stop Time Status Last Admin (NS Flush) 2 ml BID IV FLUSH 02/21/18 21:00 02/22/18 09:07 (NS Flush) 2 ml UNSCH PRN IV FLUSH 02/21/18 13:00 (Xanax) 0.25 mg Q8H PRN PO 02/21/18 15:15 02/21/18 16:34 (Norvasc) 10 mg DAILY PO 02/22/18 09:00 02/22/18 09:03 (Ecotrin Ec) 81 mg DAILY PO 02/22/18 09:00 02/22/18 09:40 (Lipitor) 10 mg HS PO 02/21/18 21:00 02/21/18 20:57 (Vitamin D3) 1,000 units DAILY PO 02/22/18 09:00 02/22/18 09:03 (Plavix) 75 mg DAILY PO 02/22/18 09:00 02/22/18 09:40 (Paxil) 20 mg DAILY PO 02/22/18 09:00 02/22/18 09:03 (Oscal) 500 mg DAILY PO 02/22/18 09:00 02/22/18 09:04 (Symbicort 160-4.5 Mcg Inh) 1 puff BID INH 02/21/18 21:00 02/22/18 09:01 (TEGretol) 200 mg Q12HR PO 02/21/18 21:00 02/22/18 09:04 (TEGretol) 100 mg HS PO 02/21/18 21:00 4/6/18 20:57 (Duoneb Neb) 1 ampule Q6HR WHILE AWAKE NEB NEB 02/21/18 20:00 02/22/18 07:47 (Ferrous Sulfate) 325 mg BID PO 02/21/18 21:00 02/22/18 09:02 (Colace) 100 mg BID PO 02/21/18 21:00 02/22/18 09:04 (Catapres) 0.1 mg Q6H PRN PO 02/21/18 15:30 02/21/18 23:10 Objective Vital Signs Date Time Temp Pulse Resp B/P (MAP) Pulse Ox O2 Delivery O2 Flow Rate FiO2 02/22/18 04:13 02/22/18 00:36 98.3 91 18 169/85 (113) 95 02/21/18 22:10 96.9 83 20 176/79 96 02/21/18 21:55 96.5 86 22 167/77 93 02/21/18 20:36 98.9 89 16 159/72 (101) 96 02/21/18 20:25 97 Nasal Cannula 2.00 02/21/18 18:31 98.0 94 20 144/65 94 02/21/18 18:23 98.6 93 20 146/65 98 02/21/18 17:29 98 Nasal Cannula 2.00 02/21/18 16:00 96.7 82 14 154/65 (94) 93 02/21/18 16:00 96.7 82 14 154/65 (94) 93 02/21/18 13:00 96.7 95 14 145/65 (91) 92 I/O 02/21/18 02/21/18 02/21/18 02/22/18 02/22/18 02/22/18 07:00 15:00 23:00 07:00 15:00 23:00 Intake Total 610 ml 410 ml Balance 610 ml 410 ml Intake Oral 200 ml Packed Cells 400 ml 400 ml Blood Product IV Normal Saline Flush 10 ml 10 ml # Voids 3 3 # Bowel Movements 0 0 Cardiovascular: Regular rate and rhythm with systolic murmur heard best at right upper sternal border Lungs: Fibrotic rales in the bilateral bases, mildly reduced air exchange bilaterally but no wheezes or rhonchi Abdomen: Soft, nontender nondistended, bowel sounds present Result Diagram: 02/22/18 0553 02/22/18 0553 Assessment and Plan Problem List: (1) Iron deficiency anemia ICD Codes: D50.9 - Iron deficiency anemia Status: Chronic Plan: The patient will receive 2 additional units of packed red blood cells today. She has had iron deficiency anemia for several years. She has in the past and continues to refuse GI evaluation with the understanding that she may have an occult malignancy that could result in significant morbidity and early mortality. She does not wish to pursue any evaluation. We will plan to give the additional 2 units packed red blood cells and have patient continue with iron supplement. Will follow H&H at home. Severe anemia was the result patient discontinuing her iron supplement. (2) Personal history of transient ischemic attack (TIA), and cerebral infarction without residual deficits ICD Codes: Z86.73 - Personal history of transient ischemic attack (TIA), and cerebral infarction without residual deficits Status: Chronic Plan: Patient continues with Plavix and aspirin. She has a history of previous lacunar CVA with extension while on aspirin alone. She remains high risk for recurrent CVA due to continued smoking. (3) COPD (chronic obstructive pulmonary disease) ICD Codes: J44.9 - Chronic obstructive pulmonary disease Status: Chronic Plan: The patient is receiving nebulizer treatments here in the hospital. Oxygen saturations were borderline upon admission. She is receiving supplemental oxygen. She does not wish to use oxygen at home. Will obtain chest x-ray to evaluate the bibasilar fibrotic rales. We will continue with Advair. Respiratory status usually improves in the hospital since she is not smoking. (4) Hypertension ICD Codes: I10 - Hypertension Status: Chronic Plan: Patient has a history of labile hypertension especially in the hospital. She is always more anxious in the hospital which increases blood pressure. Previously, she had been placed on multiple medications for hypertension which were able to be weaned as an outpatient once she has returned home. We will continue with current medication and cover elevated blood pressures with clonidine. (5) Trigeminal neuralgia pain ICD Codes: G50.0 - Trigeminal neuralgia Status: Chronic Plan: Controlled with carbamazepine (6) Hyperlipidemia ICD Codes: E78.5 - Hyperlipidemia Status: Chronic Plan: Continue with statin therapy. (7) Anxiety ICD Codes: F41.9 - Anxiety Status: Chronic Plan: The patient continues with paroxetine. She has alprazolam to use as needed for increased anxiety. Assessment and Plan Plan discharge home tomorrow morning after receiving 2 additional units of packed red blood cells. Patient has declined further evaluation for the severe anemia. She is aware of the risks of undiagnosed medical condition such as malignancy which could lead to significant morbidity and mortality. Will plan to follow-up the patient closely on an outpatient basis with frequent laboratory studies. The patient is aware that she will need to stay on an iron supplement indefinitely. Problem Qualifiers (1) Iron deficiency anemia: Qualified Codes: D50.0 - Iron deficiency anemia secondary to blood loss ( chronic) (2) COPD (chronic obstructive pulmonary disease): (3) Hypertension: Qualified Codes: I10 - Essential (primary) hypertension (4) Hyperlipidemia: Qualified Codes: E78.2 - Mixed hyperlipidemia Olvin Hugo MD Feb 22, 2018 09:50
--- NOTE | 2018-02-22 12:02 | MH ---
cc: Olvin Hugo MD DATE OF ADMISSION: 02/21/2018 ADMITTING DIAGNOSIS: Symptomatic anemia. HISTORY OF PRESENT ILLNESS: This 77-year-old white female well known to the undersigned physician has had iron deficiency anemia for the last 3 years. She had refused GI evaluation on 3 separate occasions, including once during a hospitalization. The patient had been discharged home on an iron supplement, but discontinued the iron supplement some time in the last several months. The patient was seen in her home, as she is homebound, by the undersigned physician, at which point laboratory studies were ordered. The patient's hemoglobin was reported to be 4.2. The patient reports that she has been fatigued. She is extremely sedentary in her lifestyle as she spends most of the day on her couch, and she will walk to her bedroom and to the bathroom with a walker. She does continue to smoke at least a pack of cigarettes a day. She has some mild dyspnea on exertion. She does have a history of hypoxemia associated with exacerbations of COPD, but she has refused any oxygen therapy at home. The patient has agreed to be placed in observation in order to receive transfusions due to the severe anemia. PAST MEDICAL HISTORY: Significant for kidney stones, hypothyroidism but she currently does not take any thyroid medication, COPD, osteopenia, lumbar disk disease with history of radiculitis for which she underwent epidural steroid injections in 2006. She has a history of bilateral retinal artery branch occlusions, which have left her with a left visual deficit. She has anxiety, irritable bowel syndrome with diarrhea, allergies, osteoarthritis, hyperlipidemia, left facial trigeminal neuralgia, status post right pontine lacunar cerebrovascular accident in 2010 with extension in 2012, hypertension, status post right hip fracture in 2017 requiring ORIF, iron deficiency anemia, chronic urinary incontinence, generalized anxiety disorder. PAST SURGICAL HISTORY: She is status post a facelift in 2008. She is status post total abdominal hysterectomy with bilateral salpingo-oophorectomy in 1971. She is status post appendectomy, status post cataract removal with lens implant on the right and she has the above-mentioned ORIF of the right hip in 2017. CURRENT MEDICATIONS: 1. Doxazosin 4 mg at bedtime. 2. Paroxetine 20 mg at bedtime. 3. Alprazolam 0.25 mg 1/2 to 1 tablet 3 times a day as needed for anxiety. 4. BREO ELLIPTA 100/25 mcg per inhalation 1 inhalation daily. 5. Carbamazepine ER 200 mg in the morning and 300 mg in the evening. 6. Trazodone 50 mg at bedtime as needed for insomnia. 7. Aspirin 81 mg daily. 8. Amlodipine 10 mg daily. 9. Atorvastatin 10 mg daily. 10. Plavix 75 mg daily. 11. Vitamin D 400 International units daily. 12. Calcium 600 mg daily. ALLERGIES: LAUREN INHIBITORS, WHICH CAUSE ANGIOEDEMA. FAMILY HISTORY: Noncontributory. SOCIAL HISTORY: She is . She lives alone. She has a part-time caregiver, who comes to her house 4 days a week to assist with her cooking and cleaning and any needed transportation or errands. She smokes 1+ pack of cigarettes a day. She does not consume any alcohol. She is retired. REVIEW OF SYSTEMS: The patient has a chronic smoker's cough. She has some mild dyspnea on exertion with activity. Her bowels have been moving well. She has had no definite melena or hematochezia. She is chronically incontinent of urine. She has seen urology in the past and has put off any further evaluation recently for the incontinence. She has had no dysuria or hematuria. She denies any GERD symptoms, nausea, vomiting, abdominal pain, headaches, lightheadedness, dizziness, numbness or tingling in the hands or feet. She denies any significant arthritic pains. She has had no new or changing skin lesions or rashes. PHYSICAL EXAMINATION: VITAL SIGNS: Upon arrival to the hospital, the patient's blood pressure was 145/65, heart rate is 95, respirations are 14, temperature 96.4 degrees Fahrenheit, oxygen saturation on room air was 92%. GENERAL: This is an elderly white female sitting up in bed in no acute distress. HEENT: The pupils are equal, round, and reactive to light. Extraocular movements are intact. Sclerae are anicteric. Conjunctivae are pale. Mouth and throat reveal moist mucous membranes. No erythema or exudates. NECK: Supple without lymphadenopathy, JVD, bruits or thyromegaly. CARDIOVASCULAR: Regular rate and rhythm with a II/ systolic murmur heard best at the right upper sternal border. LUNGS: Reveal moderately diminished air exchange bilaterally, but no wheezes, rhonchi, or rales. ABDOMEN: Soft, nontender, and nondistended with bowel sounds present. No masses palpable. No hepatosplenomegaly. GENITOURINARY AND RECTAL: Deferred. LOWER EXTREMITIES: Reveal no appreciable edema, no calf tenderness or Homans sign. NEUROLOGIC: The patient is awake, alert and oriented x 3. Speech intact. Cranial nerves intact. No lateralizing deficits. Downgoing toes bilaterally. Mood was good. Affect appropriate. No memory or cognitive deficits. LABORATORY DATA: The patient's white blood cell count was 4.2; hemoglobin 4.7; hematocrit 16.2; platelet count was 345,000. The basic metabolic profile was significant for a random glucose of 110, calcium was low at 8.1. Albumin was low at 3.0. Iron was 16, which is low. ASSESSMENT AND PLAN: 1. This 77-year-old white female presents with severe anemia, which is caused by iron deficiency. She likely has chronic blood loss. She has refused a gastrointestinal evaluation multiple times and she still refuses a GI evaluation. She is aware that this iron deficiency anemia could be the result of an occult malignancy in the gastrointestinal tract causing bleeding. This refusing evaluation can delay diagnosis resulting in significant morbidity or even mortality. She still declines. We will transfuse her with 2 units of packed red blood cells initially, reassess hemoglobin and hematocrit at that time and likely she will need 2 additional units. Plan would be to try to increase her hemoglobin up to the level around 10. We will also begin an iron supplement in the form of ferrous sulfate. I have discussed with the patient it is essential that she stay on iron supplement indefinitely at this point. 2. Chronic obstructive pulmonary disease. The patient is not going to smoke in the hospital. She declines a nicotine patch. Her oxygen saturations were in the low 90s. I am going to provide her with some nebulizer treatments and some supplemental oxygen while she is here in the hospital to help clear her lungs. Previously when she has been admitted this has helped greatly. Unfortunately, when she returns home she refuses any supplemental oxygen and begins to smoke again. 3. Hypertension. The patient has a long history of hypertension and during her hospitalizations her blood pressure is always high, which requires additional medication. This due to her underlying anxiety about being in a hospital setting. She will continue with her usual antihypertensive medications, cover elevated blood pressure with additional medication and if necessary will adjust antihypertensive therapy. 4. Hyperlipidemia. Continue with the statin therapy. 5. History of cerebrovascular accident x 2. The patient is going to continue with Plavix and aspirin, although she is having the likely gastrointestinal bleeding. She is at extremely high risk for recurrent cerebrovascular accident. The patient had her second cerebrovascular accident while on aspirin, therefore the Plavix was added. I believe that at this point her risk of stroke is greater than the risk of severe gastrointestinal bleeding and for this patient, a stroke would be catastrophic. She will continue with the Plavix and aspirin for now. 6. Generalized anxiety disorder. The patient continues with paroxetine and Xanax as needed. I have discussed the patient's condition and the plan of care with her. She expressed understanding and agreement. MD MYKE Velasquez/KALIN , 11:22 AM , 12:01 PM
[2018-02-22] MEDS: cloNIDine HCL 0.1 MG TAB PO PRN ×2 (13:04→21:13)
--- NOTE | 2018-02-22 13:04 | RADRPT ---
EXAM DATE/TIME: 02/22/2018 12:24 [facility] COMPARISON: CHEST SINGLE AP, May 02, 2017, 12:30. INDICATIONS : Short of breath. COPD. MEDICAL HISTORY : Chronic obstructive pulmonary disease. SURGICAL HISTORY : None. ENCOUNTER: Subsequent ACUITY: 3 days PAIN SCORE: 7/10 LOCATION: Bilateral chest FINDINGS: Single view of the chest demonstrates mild motion artifact. The lungs appear adequately inflated. No evidence of air space consolidation. No pneumothorax. The lungs appear grossly clear given the motion artifact. The heart size appears mildly enlarged. Pulmonary vasculature demonstrates mild cephalizat ion. CONCLUSION: Recommend repeat exam when clinically able. No evidence of air space abnormality give n the degree of motion. Concern is for possible congestive heart failure. Lisa Valenzuela MD on February 22, 2018 at 13:01 Board Certified Radiologist. This report was verified electronically.
[2018-02-22] MEDS: ALPRAZolam 0.25 MG TAB PO PRN (14:37)
[2018-02-22] MEDS: ATORVASTATIN 10 MG TAB PO SCH (20:33)
[2018-02-23 01:00] VITALS: BP 163/72; PULSE 78; RESP 16; TEMP 97.6; O2SAT 93
[2018-02-23 07:52] LABS: AUTOMATED NEUTROPHIL # 8.6 TH/MM3 (1.8-7.7); BASOPHIL % 0.4 % (0.0-2.0); EOSINOPHIL # 0.1 TH/MM3 (0-0.4); EOSINOPHIL % 1.3 % (0.0-4.0); HEMATOCRIT 32.3 % (35.0-46.0); HEMOGLOBIN 10.2 GM/DL (11.6-15.3); LYMPH % 7.4 % (9.0-44.0); LYMPHOCYTE # 0.8 TH/MM3 (1.0-4.8); MEAN CELL VOLUME 71.9 FL (80.0-100.0); MEAN CORPUSCULAR HEMOGLOBIN 22.6 PG (27.0-34.0); MEAN CORPUSCULAR HGB CONC 31.5 % (32.0-36.0); MEAN PLATELET VOLUME 7.9 FL (7.0-11.0); MONO % 8.6 % (0.0-8.0); MONOCYTE # 0.9 TH/MM3 (0-0.9); NEUT % 82.3 % (16.0-70.0); PLATELET COUNT 273 TH/MM3 (150-450); RED BLOOD COUNT 4.49 MIL/MM3 (4.00-5.30); RED CELL DISTRIBUTION WIDTH 31.3 % (11.6-17.2); WHITE BLOOD COUNT 10.4 TH/MM3 (4.0-11.0)
[2018-02-23] MEDS: RESP: ALBUTEROL 2.5 MG/IPRATROPIUM 0.5 MG NEB (SCH) NEB (07:56)
[2018-02-23 07:57] VITALS: O2SAT 87
[2018-02-23 08:00] VITALS: BP 184/74; PULSE 106; RESP 18; TEMP 98.6; O2SAT 94
[2018-02-23 08:11] LABS: BICARBONATE 28.7 MEQ/L (21.0-32.0); CALCIUM 8.2 MG/DL (8.5-10.1)
[2018-02-23 08:15] LABS: CREATININE 0.58 MG/DL (0.50-1.00)
[2018-02-23 08:34] LABS: TARGET CELLS 1+ (NORMAL)
[2018-02-23 08:35] LABS: KERATOCYTES OCC (NORMAL); OVALOCYTES 1+ (NORMAL)
[2018-02-23] MEDS: PARoxetine HCL 20 MG TAB PO SCH (08:42)
[2018-02-23] MEDS: CALCIUM CARBONATE 1.25 GM (CA 500 MG) TAB PO SCH (08:42)
[2018-02-23] MEDS: BUDESONIDE-FORMOTEROL 160/4.5 MCG INHALER INH SCH (08:42)
[2018-02-23] MEDS: carBAMazepine 200 MG TAB PO SCH (08:42)
[2018-02-23] MEDS: ASPIRIN EC 81 MG TABEC PO SCH (08:43)
[2018-02-23] MEDS: CHOLECALCIFEROL (VIT D3) 1000 UNIT TAB PO SCH (08:43)
[2018-02-23] MEDS: DOCUSATE SODIUM 100 MG CAP PO SCH (08:43)
[2018-02-23] MEDS: CLOPIDOGREL 75 MG TAB PO SCH (08:43)
[2018-02-23] MEDS: FERROUS SULFATE 325 MG (65 MG ELEMENTAL IRON) TAB PO SCH (08:43)
[2018-02-23] MEDS: SODIUM CHLORIDE FLUSH BID IV FLUSH SCH (08:44)
--- NOTE | 2018-02-23 09:05 | HHI.PR ---
Subjective Remarks The patient is status post transfusion of 4 units packed red blood cells. Hemoglobin has improved. She is feeling stronger. Appetite good. Urine output good. Bowels are moving. Blood pressure has remained elevated but this is not unusual for the patient in the acute care setting. Patient's oxygen saturation on room air was 92%. She did have a fall yesterday but no injury. The patient normally ambulates at home with a 2 wheeled rolling walker. She tried to transfer from the bed to the bedside commode without any assistance and lost her footing. She has been able to ambulate with a walker in the room. Current Medications Medications (Trade) Dose Ordered Sig/Estelita Route Start Time Stop Time Status Last Admin (NS Flush) 2 ml BID IV FLUSH 02/21/18 21:00 02/23/18 08:44 (NS Flush) 2 ml UNSCH PRN IV FLUSH 02/21/18 13:00 (Xanax) 0.25 mg Q8H PRN PO 02/21/18 15:15 02/22/18 14:37 (Norvasc) 10 mg DAILY PO 02/22/18 09:00 02/23/18 08:43 (Ecotrin Ec) 81 mg DAILY PO 02/22/18 09:00 02/23/18 08:43 (Lipitor) 10 mg HS PO 02/21/18 21:00 02/22/18 20:33 (Vitamin D3) 1,000 units DAILY PO 02/22/18 09:00 02/23/18 08:43 (Plavix) 75 mg DAILY PO 02/22/18 09:00 02/23/18 08:43 (Paxil) 20 mg DAILY PO 02/22/18 09:00 02/23/18 08:42 (Oscal) 500 mg DAILY PO 02/22/18 09:00 02/23/18 08:42 (Symbicort 160-4.5 Mcg Inh) 1 puff BID INH 02/21/18 21:00 02/23/18 08:42 (TEGretol) 200 mg Q12HR PO 02/21/18 21:00 02/23/18 08:42 (TEGretol) 100 mg HS PO 02/21/18 21:00 02/22/18 20:32 (Duoneb Neb) 1 ampule Q6HR WHILE AWAKE NEB NEB 02/21/18 20:00 02/23/18 07:56 (Ferrous Sulfate) 325 mg BID PO 02/21/18 21:00 02/23/18 08:43 (Colace) 100 mg BID PO 02/21/18 21:00 02/22/18 20:33 (Catapres) 0.1 mg Q6H PRN PO 02/21/18 15:30 02/22/18 21:13 Objective Vital Signs Date Time Temp Pulse Resp B/P (MAP) Pulse Ox O2 Delivery O2 Flow Rate FiO2 02/23/18 04:00 02/23/18 01:00 97.6 78 16 163/72 (102) 93 02/22/18 21:17 97.9 81 18 173/86 (115) 94 02/22/18 19:46 97 Nasal Cannula 2.00 02/22/18 16:55 97.0 68 18 162/68 02/22/18 16:00 98.3 80 20 187/80 (115) 96 02/22/18 16:00 96.5 65 18 159/68 92 02/22/18 15:20 96.0 71 19 159/67 02/22/18 15:04 96.2 68 18 158/69 92 02/22/18 14:51 96.0 68 19 162/70 92 02/22/18 14:37 96.1 65 18 165/72 92 02/22/18 13:45 96.2 71 18 163/72 02/22/18 13:15 96.0 70 18 159/70 02/22/18 12:45 96.0 65 19 170/76 02/22/18 12:22 96.0 75 19 177/75 02/22/18 12:07 96.0 67 18 167/71 92 02/22/18 12:00 98.3 98 20 190/76 (114) 98 02/22/18 11:52 96.0 78 19 170/78 92 02/22/18 11:36 95.3 78 20 165/64 92 I/O 02/22/18 02/22/18 02/22/18 02/23/18 02/23/18 02/23/18 07:00 15:00 23:00 07:00 15:00 23:00 Intake Total 410 ml 405 ml 880 ml Balance 410 ml 405 ml 880 ml Intake Oral 480 ml Packed Cells 400 ml 400 ml 400 ml Blood Product IV Normal Saline Flush 10 ml 5 ml # Voids 3 6 # Bowel Movements 0 0 Cardiovascular: Regular rate and rhythm Lungs: Clear to auscultation with moderately reduced air exchange bilaterally Abdomen: Soft, nontender nondistended with bowel sounds present Result Diagram: 02/23/1872102/23/18721 Assessment and Plan Problem List: (1) Iron deficiency anemia ICD Codes: D50.9 - Iron deficiency anemia Status: Chronic Plan: Hemoglobin has improved to 10.2. Patient will continue with ferrous sulfate as an outpatient. She is aware that the most likely cause of her iron deficiency anemia is gastrointestinal blood loss. She, however, declines GI evaluation. She is aware that this could delay the diagnosis of the underlying etiology which could include a malignancy. This could lead to significant morbidity and even mortality. Will follow H&H as an outpatient. (2) Personal history of transient ischemic attack (TIA), and cerebral infarction without residual deficits ICD Codes: Z86.73 - Personal history of transient ischemic attack (TIA), and cerebral infarction without residual deficits Status: Chronic Plan: Patient continues with Plavix and aspirin. She has a history of previous lacunar CVA with extension while on aspirin alone. She remains high risk for recurrent CVA due to continued smoking. (3) COPD (chronic obstructive pulmonary disease) ICD Codes: J44.9 - Chronic obstructive pulmonary disease Status: Chronic Plan: The patient does not qualify for supplemental oxygen at rest. She does agree to a nocturnal oxygen saturation study which will be accomplished as an outpatient. I have strongly encouraged her not to resume smoking. She will resume Breo ellipta as an outpatient. (4) Hypertension ICD Codes: I10 - Hypertension Status: Chronic Plan: Blood pressure is always elevated in the acute care setting. Will follow -up her blood pressure as outpatient and adjust medication if needed. (5) Trigeminal neuralgia pain ICD Codes: G50.0 - Trigeminal neuralgia Status: Chronic Plan: Controlled with carbamazepine (6) Hyperlipidemia ICD Codes: E78.5 - Hyperlipidemia Status: Chronic Plan: Continue with statin therapy. (7) Anxiety ICD Codes: F41.9 - Anxiety Status: Chronic Plan: The patient continues with paroxetine. She has alprazolam to use as needed for increased anxiety. Assessment and Plan We will discharge patient home today. The undersigned physician will see the patient in her home in a week for follow-up. A home blood draw will be arranged to monitor H&H. Nocturnal oxygen saturation study will also be ordered to be done next week. Problem Qualifiers (1) Iron deficiency anemia: Qualified Codes: D50.0 - Iron deficiency anemia secondary to blood loss ( chronic) (2) COPD (chronic obstructive pulmonary disease): (3) Hypertension: Qualified Codes: I10 - Essential (primary) hypertension (4) Hyperlipidemia: Qualified Codes: E78.2 - Mixed hyperlipidemia Olvin Hugo MD Feb 23, 2018 09:05
[2018-02-23] MEDS ORDERED: FLUT1INH INH (09:11)
[2018-02-23] MEDS ORDERED: CARB100C42 PO (09:11)
[2018-02-23] MEDS ORDERED: FERR325T20 PO (09:11)
--- NOTE | 2018-02-23 09:17 | HHI.DS ---
Discharge Summary Admission Date Feb 21, 2018 at 12:28 Discharge Date: Feb 23, 2018 Admitting Diagnosis Symptomatic anemia (1) Iron deficiency anemia Diagnosis: Principal ICD Codes: D50.9 - Iron deficiency anemia Status: Chronic (2) COPD (chronic obstructive pulmonary disease) Diagnosis: Secondary ICD Codes: J44.9 - Chronic obstructive pulmonary disease Status: Chronic (3) Hyperlipidemia Diagnosis: Secondary ICD Codes: E78.5 - Hyperlipidemia Status: Chronic (4) Urge and stress incontinence Diagnosis: Secondary ICD Codes: N39.46 - Mixed incontinence Status: Acute (5) Trigeminal neuralgia pain Diagnosis: Secondary ICD Codes: G50.0 - Trigeminal neuralgia Status: Chronic (6) Anxiety Diagnosis: Secondary ICD Codes: F41.9 - Anxiety Status: Chronic (7) Personal history of cerebrovascular accident with residual effects Diagnosis: Secondary ICD Codes: I69.90 - Late effects of cerebrovascular disease Status: Acute Brief History This 77-year-old white female with history of a previous CVA, COPD, generalized anxiety disorder and hyperlipidemia has had iron deficiency anemia for approximately 3 years. She previously was recommended to have a GI evaluation for evaluation of to identify source of blood loss, however, she refused. The patient was to be taking ferrous sulfate at home, however, she discontinued. Recent laboratory studies done 2 days prior to admission revealed a hemoglobin of 4.2. The patient has been complaining of fatigue. She lives a very sedentary lifestyle and has some dyspnea on exertion but she thought it was due to her COPD. She denies any definite melena, hematochezia, abdominal pain, nausea or vomiting. Her weight has been stable. The patient was placed in observation in order to receive transfusion of packed red blood cells to correct anemia. CBC/BMP: 02/23/18 0722 02/23/18 0722 Significant Findings Laboratory Tests Test 02/21/18 13:25 02/22/18 05:53 02/23/18 07:22 Red Blood Count 2.82 MIL/MM3 (4.00-5.30) 3.52 MIL/MM3 (4.00-5.30) Hemoglobin 4.7 GM/DL (11.6-15.3) 7.6 GM/DL (11.6-15.3) 10.2 GM/DL (11.6-15.3) Hematocrit 16.2 % (35.0-46.0) 24.1 % (35.0-46.0) 32.3 % (35.0-46.0) Mean Corpuscular Volume 57.4 FL (80.0-100.0) 68.5 FL (80.0-100.0) 71.9 FL (80.0-100.0) Mean Corpuscular Hemoglobin 16.6 PG (27.0-34.0) 21.5 PG (27.0-34.0) 22.6 PG (27.0-34.0) Mean Corpuscular Hemoglobin Concent 29.0 % (32.0-36.0) 31.3 % (32.0-36.0) 31.5 % (32.0-36.0) Red Cell Distribution Width 21.3 % (11.6-17.2) 30.7 % (11.6-17.2) 31.3 % (11.6-17.2) Neutrophils % (Manual) 72 % (16-70) Target Cells 1+ (NORMAL) 1+ (NORMAL) 1+ (NORMAL) Tear Drop Cells 1+ (NORMAL) Ovalocytes 2+ (NORMAL) 1+ (NORMAL) 1+ (NORMAL) Keratocytes 1+ (NORMAL) OCC (NORMAL) OCC (NORMAL) Random Glucose 110 MG/DL (74-106) Albumin 3.0 GM/DL (3.4-5.0) Calcium Level 8.1 MG/DL (8.5-10.1) 8.0 MG/DL (8.5-10.1) 8.2 MG/DL (8.5-10.1) Aspartate Amino Transf (AST/SGOT) 11 U/L (15-37) Chloride Level 109 MEQ/L (98-107) 109 MEQ/L (98-107) Iron Level 16 MCG/DL (50-170) Monocytes (%) (Auto) 11.1 % (0.0-8.0) 8.6 % (0.0-8.0) Neutrophils (%) (Auto) 82.3 % (16.0-70.0) Lymphocytes (%) (Auto) 7.4 % (9.0-44.0) Neutrophils # (Auto) 8.6 TH/MM3 (1.8-7.7) Lymphocytes # (Auto) 0.8 TH/MM3 (1.0-4.8) Hospital Course The patient was admitted to medical surgical bed. She was transfused a total of 4 units packed red blood cells with resulting hemoglobin of 10.2. She reported that she is feeling stronger. The patient has COPD and continues to smoke at home. During the hospitalization , she was placed on supplemental oxygen, given nebulizer treatments and continued with a maintenance inhaler. The patient had some coughing but denied any shortness of breath. Her oxygen saturation on room air on the day discharge was 92%. The patient was informed that it is possible she has nocturnal hypoxemia as a result of the COPD. She did agree to an outpatient nocturnal oxygen saturation study which will be performed. The patient's blood pressure remained borderline to elevated during the hospitalization. This is not unusual for this individual. Each time she has been hospitalized in the past, her blood pressure has remained high but it returns to normal when she is discharged home. The patient generalized anxiety disorder which is exacerbated by an acute hospitalization. She denied any chest pain or palpitations. She had no headaches. On the day of discharge, the patient was able to ambulate with her walker to the bathroom. She was eating well. Bowels are moving. Urine output was good. It was felt she had obtained maximum benefit from the hospitalization. The patient was discharged home in good condition. The undersigned physician would see the patient in her home within a week after discharge. Outpatient laboratory studies were being arranged for the patient to have serial H&H checked every 2 weeks to ensure stability of her blood count. She will be discharged home on an iron supplement. The nocturnal oxygen saturation study will be ordered as well. The patient was instructed to notify the undersigned physician for any nausea, vomiting, abdominal pain, blood in stool, chest pain, shortness of breath, headaches. Patient's discharge medications were listed on the medication reconciliation sheet. Pt Condition on Discharge: Good Discharge Disposition: Discharge Home Discharge Instructions DIET: Follow Instructions for: Heart Healthy Diet Activities you can perform: See Additionl Instruction Additional Activity Instructio: The patient is to ambulate with a walker at all times. Olvin Hugo MD Feb 23, 2018 09:17
== END 2018-02-23 12:19 | disposition home or self-care (01) ==
LOC: PH3A 12:28 → PH3B 13:17 → PH3A 13:19
PROVIDERS: ADMIT Family Medicine; ATTEND Family Medicine
DX: D50.0 Iron deficiency anemia secondary to blood loss (chronic) (principal); J44.9 Chronic obstructive pulmonary disease, unspecified; I10 Essential (primary) hypertension; E78.5 Hyperlipidemia, unspecified; Z86.73 Personal history of transient ischemic attack (TIA), and cerebral infarction without residual deficits; E03.9 Hypothyroidism, unspecified; F41.1 Generalized anxiety disorder; N39.46 Mixed incontinence; K58.9 Irritable bowel syndrome, unspecified; G50.0 Trigeminal neuralgia; M19.90 Unspecified osteoarthritis, unspecified site; R09.02 Hypoxemia; M85.80 Other specified disorders of bone density and structure, unspecified site; M51.87 Other intervertebral disc disorders, lumbosacral region; H34.233 Retinal artery branch occlusion, bilateral; F17.200 Nicotine dependence, unspecified, uncomplicated; Z87.442 Personal history of urinary calculi; Z87.81 Personal history of (healed) traumatic fracture; Z79.02 Long term (current) use of antithrombotics/antiplatelets
CPT/HCPCS: 36430; 71045; 80048; 80053; 83540; 85007; 85025; 85027; 85044; 86850; 86900; 86901; 86920; 94640; 94664; G0378; P9016